=== PATIENT | male | born 1935 | race Caucasian/White ===

== ENCOUNTER 2019-01-11 09:59 | Emergency (ER) | payer OTHER ==
--- NOTE | 2019-01-11 10:36 | ER ---
Nurse's Notes [facility] Name: Eloy Dunn Jr Age: 83 yrs Sex: Male : 1935 Arrival Date: 01/11/2019 Time: 10:03 Bed 12 Private MD: Aaron Mcdaniels R Diagnosis: Cellulitis of right upper limb Presentation: 01/11 10:14 Presenting complaint: Patient states: He got a bug bite 2 days ago and it has been aj1 getting bigger and swelling since then. Transition of care: patient was not received from another setting of care. Onset of symptoms was January 09, 2019. Risk Assessment: Do you want to hurt yourself or someone else? Patient reports no desire to harm self or others. Initial Sepsis Screen: Does the patient meet any 2 criteria? No. Patient's initial sepsis screen is negative. Does the patient have a suspected source of infection? No. Patient's initial sepsis screen is negative. Care prior to arrival: None. 10:14 Method Of Arrival: Ambulatory aj1 10:14 Acuity: GIA 4 aj1 Historical: - Allergies: 10:17 ACETAMINOPHEN; aj1 10:17 Codeine; aj1 10:17 Omeprazole; aj1 - Home Meds: 10:17 amlodipine 5 mg tab 1 tab once daily [Active]; lovastatin 40 mg Oral tab 1 tab once aj1 daily [Active]; pantoprazole 40 mg oral TbEC 1 tab once daily [Active]; paroxetine HCl 10 mg oral tab 1 tab once daily [Active]; aspirin 81 mg Oral chew 1 tab once daily [Active]; multivitamin oral oral daily [Active]; simethicone 125 mg Oral chew daily [Active]; - PMHx: 10:17 Hyperlipidemia; Hypertension; Ulcers; aj1 - Immunization history:: Flu vaccine is up to date. - Social history:: Smoking status: Patient/guardian denies using tobacco. - Ebola Screening: : Patient denies travel to an Ebola-affected area in the 21 days before illness onset. Screenin:53 Abuse screen: Denies threats or abuse. Denies injuries from another. Nutritional aj1 screening: No deficits noted. Tuberculosis screening: No symptoms or risk factors identified. Fall Risk None identified. Assessment: 10:52 General: Appears in no apparent distress. comfortable, Behavior is calm, cooperative, aj1 appropriate for age. Neuro: Level of Consciousness is awake, alert, obeys commands, Oriented to person, place, time, situation. Cardiovascular: Patient's skin is warm and dry. Respiratory: Airway is patent Respiratory effort is even, unlabored, Respiratory pattern is regular, symmetrical. GI: No signs and/or symptoms were reported involving the gastrointestinal system. : No signs and/or symptoms were reported regarding the genitourinary system. EENT: No signs and/or symptoms were reported regarding the EENT system. Derm: Skin is intact, Skin is redness to right forearm Reports itching. Musculoskeletal: No signs and/or symptoms reported regarding the musculoskeletal system. Circulation, motion, and sensation intact. 10:53 Pain: Denies pain. aj1 10:53 Reassessment: Skin marker used to draw around circumference of redness, patient was aj1 instructed to return to the ER if redness continues to grow. Vital Signs: 10:17 BP 144 / 84; Pulse 77; Resp 18; Temp 98.2; Pulse Ox 97% on R/A; aj1 ED Course: 10:03 Patient arrived in ED. mr 10:04 Aaron Mcdaniels MD is Private Physician. mr 10:15 Triage completed. aj1 10:17 Arm band placed on Patient placed in an exam room. aj1 10:22 Pamela Langley [facility]NP-C [facility]. kb 10:22 Obed Denis MD is Attending Physician. kb 10:34 Carlota Downey RN is Primary Nurse. aj1 10:53 Patient has correct armband on for positive identification. aj1 10:53 No provider procedures requiring assistance completed. Patient did not have IV access aj1 during this emergency room visit. Administered Medications: 10:51 Drug: Pepcid 20 mg Route: PO; aj1 10:51 Drug: Benadryl 25 mg Route: PO; aj1 10:51 Drug: Bactrim (160 mg-800 mg (DS) 1 tablet Route: PO; aj1 Outcome: 10:36 Discharge ordered by . kb 10:54 Discharged to home ambulatory. aj1 10:54 Condition: good 10:54 Discharge instructions given to patient, Instructed on discharge instructions, follow up and referral plans. medication usage, Demonstrated understanding of instructions, follow-up care, medications, Prescriptions given X 2. 10:54 Patient left the ED. aj1 Signatures: Pamela Langley, CRISTINA VAZQUEZ-Carlota Szymanski RN RN aj1 [place] mr
--- NOTE | 2019-01-11 10:37 | EDPHYS ---
Physician Documentation [facility] Name: Eloy Dunn Jr Age: 83 yrs Sex: Male : 1935 Arrival Date: 01/11/2019 Time: 10:03 Bed 12 Private MD: Aaron Mcdaniels R ED Physician Obed Denis HPI: 01/11 10:33 This 83 yrs old Male presents to ER via Ambulatory with complaints of Insect kb Bite, arm swelling. 10:33 The patient presents with cellulitis of the right forearm. Description: erythematous, kb swollen, warm. Onset: The symptoms/episode began/occurred 2 day(s) ago, and became worse last night. Possible cause(s): insect sting. Associated signs and symptoms: Pertinent positives: erythema, swelling, Pertinent negatives: discharge, drainage, foreign body sensation, fever, headache, nausea, shortness of breath, vomiting. Modifying factors: the symptoms are alleviated by nothing, the symptoms are aggravated by nothing. Severity of symptoms: At their worst the symptoms were moderate, in the emergency department the symptoms are unchanged. The patient has not experienced similar symptoms in the past. The patient has not recently seen a physician. Pt reports he was stung or bit by a bug on evening. Started getting red and swollen yesterday and worse last night. . Historical: - Allergies: 10:17 ACETAMINOPHEN; aj1 10:17 Codeine; aj1 10:17 Omeprazole; aj1 - Home Meds: 10:17 amlodipine 5 mg tab 1 tab once daily [Active]; lovastatin 40 mg Oral tab 1 tab once aj1 daily [Active]; pantoprazole 40 mg oral TbEC 1 tab once daily [Active]; paroxetine HCl 10 mg oral tab 1 tab once daily [Active]; aspirin 81 mg Oral chew 1 tab once daily [Active]; multivitamin oral oral daily [Active]; simethicone 125 mg Oral chew daily [Active]; - PMHx: 10:17 Hyperlipidemia; Hypertension; Ulcers; aj1 - Immunization history:: Flu vaccine is up to date. - Social history:: Smoking status: Patient/guardian denies using tobacco. - Ebola Screening: : Patient denies travel to an Ebola-affected area in the 21 days before illness onset. ROS: 10:30 Constitutional: Negative for fever, chills, and weight loss, Cardiovascular: Negative kb for chest pain, palpitations, and edema, Respiratory: Negative for shortness of breath, cough, wheezing, and pleuritic chest pain, Abdomen/GI: Negative for abdominal pain, nausea, vomiting, diarrhea, and constipation, MS/Extremity: Negative for injury and deformity, Neuro: Negative for headache, weakness, numbness, tingling, and seizure. 10:30 Skin: Positive for erythema, swelling, of the right forearm. Exam: 10:30 Constitutional: This is a well developed, well nourished patient who is awake, alert, kb and in no acute distress. Head/Face: Normocephalic, atraumatic. Chest/axilla: Normal chest wall appearance and motion. Nontender with no deformity. No lesions are appreciated. Cardiovascular: Regular rate and rhythm with a normal S1 and S2. No gallops, murmurs, or rubs. Normal PMI, no JVD. No pulse deficits. Respiratory: Lungs have equal breath sounds bilaterally, clear to auscultation and percussion. No rales, rhonchi or wheezes noted. No increased work of breathing, no retractions or nasal flaring. Abdomen/GI: Soft, non-tender, with normal bowel sounds. No distension or tympany. No guarding or rebound. No evidence of tenderness throughout. MS/ Extremity: Pulses equal, no cyanosis. Neurovascular intact. Full, normal range of motion. Neuro: Awake and alert, GCS 15, oriented to person, place, time, and situation. Cranial nerves II-XII grossly intact. Motor strength 5/5 in all extremities. Sensory grossly intact. Cerebellar exam normal. Normal gait. 10:30 Skin: cellulitis, that is mild, on the right forearm. Vital Signs: 10:17 BP 144 / 84; Pulse 77; Resp 18; Temp 98.2; Pulse Ox 97% on R/A; aj1 MDM: 10:22 Patient medically screened. kb 10:29 Data reviewed: vital signs, nurses notes. Data interpreted: Pulse oximetry: on room air kb is 97 %. Interpretation: normal. Counseling: I had a detailed discussion with the patient and/or guardian regarding: the historical points, exam findings, and any diagnostic results supporting the discharge/admit diagnosis, the need for outpatient follow up, a family practitioner, to return to the emergency department if symptoms worsen or persist or if there are any questions or concerns that arise at home. 10:34 ED course: No areas of fluctuance noted. Pt reports itching to area.. kb Administered Medications: 10:51 Drug: Pepcid 20 mg Route: PO; aj1 10:51 Drug: Benadryl 25 mg Route: PO; aj1 10:51 Drug: Bactrim (160 mg-800 mg (DS) 1 tablet Route: PO; aj1 Disposition: 17:55 Co-signature as Attending Physician, Obed Denis MD. Disposition: 01/11/19 10:36 Discharged to Home. Impression: Cellulitis of right upper limb. - Condition is Stable. - Discharge Instructions: Cellulitis, Adult, [id number]. - Prescriptions for Pepcid 20 mg Oral Tablet - take 1 tablet by ORAL route every 12 hours for 5 days; 10 tablet. Bactrim DS 800- 160 mg Oral Tablet - take 1 tablet by ORAL route every 12 hours for 10 days; 20 tablet. - Medication Reconciliation Form, Thank You Letter, Antibiotic Education, Prescription Opioid Use form. - Follow up: Emergency Department; When: As needed; Reason: Worsening of condition. Follow up: Private Physician; When: 2 - 3 days; Reason: Recheck today's complaints, Continuance of care, Re-evaluation by your physician. Signatures: Pamela Langley, ELECTRONIC ENGRAVER-C ELECTRONIC ENGRAVER-Carlota Szymanski RN RN aj1 Obed Denis MD MD Corrections: (The following items were deleted from the chart) 10:54 10:36 01/11/2019 10:36 Discharged to Home. Impression: Cellulitis of right upper limb. aj1 Condition is Stable. Forms are Medication Reconciliation Form, Thank You Letter, Antibiotic Education, Prescription Opioid Use. Follow up: Emergency Department; When: As needed; Reason: Worsening of condition. Follow up: Private Physician; When: 2 - 3 days; Reason: Recheck today's complaints, Continuance of care, Re-evaluation by your physician. kb
[2019-01-11] MEDS ORDERED: DIPHENHYDRAMINE 25 MG TAB/CAP ONE (10:51)
[2019-01-11] MEDS ORDERED: FAMOTIDINE 20 MG TAB ONE (10:52)
[2019-01-11] MEDS ORDERED: SMZ./TMP. 800/160 MG TABLET ONE (10:52)
[2019-01-11 11:01] VITALS: BP 144/84; TEMP 98.2; O2SAT 97
== END 2019-01-11 10:54 | disposition home or self-care (01) ==
LOC: ER 09:59
DX: L03.113 Cellulitis of right upper limb (principal); I10 Essential (primary) hypertension; E78.5 Hyperlipidemia, unspecified; Z79.82 Long term (current) use of aspirin; Z88.5 Allergy status to narcotic agent; Z88.6 Allergy status to analgesic agent; Z88.8 Allergy status to other drugs, medicaments and biological substances
CPT/HCPCS: 99283

== ENCOUNTER 2019-01-11 20:15 | Emergency (ER) | payer OTHER ==
[2019-01-11] MEDS ORDERED: CLINDAMYCIN 600MG/D5W 600 MG/50 ML BAG IV ONE (20:50)
[2019-01-11] MEDS ORDERED: hydrOXYzine HCl 25 MG TAB ONE (20:50)
--- NOTE | 2019-01-11 21:03 | ER ---
Nurse's Notes [facility] [place], [place] Name: Eloy Dunn Jr Age: 83 yrs Sex: Male : 1935 Arrival Date: 01/11/2019 Time: 20:18 Bed 13 Private MD: Aaron Mcdaniels R Diagnosis: Cellulitis of right upper limb Presentation: 01/11 20:23 Presenting complaint: Patient states: States he was seen earlier in ER for insect bite wh on R forearm, was given Bactrim and Pepcid. Was told to come back in ER if redness progresses beyond the drawn line. Pt states R arm is more red, warm and more itchy. Transition of care: patient was not received from another setting of care. Onset of symptoms was January 11, 2019. Risk Assessment: Do you want to hurt yourself or someone else? Patient reports no desire to harm self or others. Initial Sepsis Screen: Does the patient meet any 2 criteria? No. Patient's initial sepsis screen is negative. Does the patient have a suspected source of infection? Yes:. Care prior to arrival: None. 20:23 Method Of Arrival: Ambulatory 20:23 Acuity: GIA 3 Triage Assessment: 20:27 General: Appears in no apparent distress. Behavior is calm, cooperative, appropriate wh for age. Historical: - Allergies: 20:23 ACETAMINOPHEN; ch 20:23 Codeine; ch 20:23 Omeprazole; ch - Home Meds: 20:23 amlodipine 5 mg tab 1 tab once daily [Active]; aspirin 81 mg Oral chew 1 tab once daily ch [Active]; lovastatin 40 mg Oral tab 1 tab once daily [Active]; multivitamin Oral daily [Active]; pantoprazole 40 mg Oral TbEC 1 tab once daily [Active]; paroxetine HCl 10 mg Oral tab 1 tab once daily [Active]; simethicone 125 mg Oral chew daily [Active]; - PMHx: 20:23 Hyperlipidemia; Hypertension; Ulcers; ch - PSHx: 20:26 shoulder "infection" removed; eriberto hands tendon release; ch - Immunization history:: Adult Immunizations up to date. - Social history:: Smoking status: Patient/guardian denies using tobacco. - Ebola Screening: : Patient negative for fever greater than or equal to 101.5 degrees Fahrenheit, and additional compatible Ebola Virus Disease symptoms Patient denies exposure to infectious person Patient denies travel to an Ebola-affected area in the 21 days before illness onset No symptoms or risks identified at this time. Screenin:25 Abuse screen: Denies threats or abuse. Denies injuries from another. Nutritional wh screening: No deficits noted. Tuberculosis screening: No symptoms or risk factors identified. Fall Risk None identified. Assessment: 20:27 General: Appears in no apparent distress. Behavior is calm, cooperative, appropriate wh for age. Pain: Denies pain. Neuro: Level of Consciousness is awake, alert, obeys commands. Cardiovascular: Capillary refill < 3 seconds. Respiratory: Airway is patent Respiratory effort is even, unlabored, Respiratory pattern is regular, symmetrical. GI: Abdomen is flat, non-distended. : No signs and/or symptoms were reported regarding the genitourinary system. EENT: No signs and/or symptoms were reported regarding the EENT system. Derm: Skin is red, Skin temperature is warm on R Forearm. Musculoskeletal: Range of motion: intact in all extremities. 21:04 Reassessment: awaiting pt clindamycin to finish prior to discharge. 21:23 Reassessment: Patient and/or family updated on plan of care and expected duration. Pain bb level reassessed. Patient is alert, oriented x 3, equal unlabored respirations, skin warm/dry/pink. pt and spouse verbalized understanding of and agrees to plan of care discharge instructions given pt ambulated with steady gait to exit accompanied by spouse. Vital Signs: 20:25 BP 153 / 91; Pulse 79; Resp 18; Temp 99.1; Pulse Ox 96% on R/A; wh 21:24 BP 133 / 83; Pulse 73; Resp 16 S; Temp 98.6(O); Pulse Ox 95% on R/A; bb ED Course: 20:18 Patient arrived in ED. am2 20:19 Aaron Mcdaniels MD is Private Physician. am2 20:22 Clarisse Rea is Primary Nurse. 20:25 Triage completed. 20:27 Arm band placed on left wrist. 20:27 Patient has correct armband on for positive identification. Bed in low position. Call light in reach. Side rails up X 1. Pulse ox on. NIBP on. 20:28 Pamela [facility]-C [facility]. kb 20:28 Leonardo Lockhart MD is Attending Physician. kb 20:48 Inserted saline lock: 22 gauge in left antecubital area, using aseptic technique. 21:02 Aaron Mcdaniels MD is Referral Physician. kb 21:24 No provider procedures requiring assistance completed. IV discontinued, intact, bb bleeding controlled, No redness/swelling at site. Pressure dressing applied. Administered Medications: 20:46 Drug: Atarax 50 mg Route: PO; 20:47 Drug: Clindamycin 600 mg Route: IVPB; Infused Over: 30 mins; Site: left antecubital; Outcome: 21:02 Discharge ordered by MD. kb 21:24 Discharged to home ambulatory, with family. bb 21:24 Condition: stable 21:24 Discharge instructions given to patient, family, Instructed on discharge instructions, follow up and referral plans. medication usage, Demonstrated understanding of instructions, follow-up care, medications, Prescriptions given X 2. 21:25 Patient left the ED. bb Signatures: Pamela Langley FNP-C FNP-Katherin Herrera, RN RN Joan Washington RN RN Kaleigh Zendejas Winsy
--- NOTE | 2019-01-11 21:04 | EDPHYS ---
Physician Documentation [facility] Name: Eloy Dunn Jr Age: 83 yrs Sex: Male : 1935 Arrival Date: 01/11/2019 Time: 20:18 Bed 13 Private MD: Aaron Mcdaniels R ED Physician Leonardo Lockhart HPI: 01/11 20:36 This 83 yrs old Male presents to ER via Ambulatory with complaints of Arm kb Problem - swelling. 20:36 The patient presents with cellulitis of the right forearm. Description: erythematous, kb swollen, warm. Onset: The symptoms/episode began/occurred 2 day(s) ago. Possible cause(s): insect sting. Associated signs and symptoms: Pertinent positives: erythema, swelling, Pertinent negatives: discharge, drainage, foreign body sensation, fever, headache, nausea, shortness of breath, vomiting. Modifying factors: the symptoms are alleviated by nothing, the symptoms are aggravated by nothing. Severity of symptoms: At their worst the symptoms were moderate, in the emergency department the symptoms are unchanged. The patient has not experienced similar symptoms in the past. The patient has been recently seen at the [facility] Emergency Department, today, by me, for similar complaints was given a prescription for antibiotics. Pt came back to ER because redness spread outside of lines drawn at his earlier visit. States the itching is more intense as well and it what is bothering him the most. Pt had first dose of bactrim here at 1030 and is scheduled to have his second dose tonight. . Historical: - Allergies: 20:23 ACETAMINOPHEN; ch 20:23 Codeine; ch 20:23 Omeprazole; ch - Home Meds: 20:23 amlodipine 5 mg tab 1 tab once daily [Active]; aspirin 81 mg Oral chew 1 tab once daily ch [Active]; lovastatin 40 mg Oral tab 1 tab once daily [Active]; multivitamin Oral daily [Active]; pantoprazole 40 mg Oral TbEC 1 tab once daily [Active]; paroxetine HCl 10 mg Oral tab 1 tab once daily [Active]; simethicone 125 mg Oral chew daily [Active]; - PMHx: 20:23 Hyperlipidemia; Hypertension; Ulcers; ch - PSHx: 20:26 shoulder "infection" removed; eriberto hands tendon release; ch - Immunization history:: Adult Immunizations up to date. - Social history:: Smoking status: Patient/guardian denies using tobacco. - Ebola Screening: : Patient negative for fever greater than or equal to 101.5 degrees Fahrenheit, and additional compatible Ebola Virus Disease symptoms Patient denies exposure to infectious person Patient denies travel to an Ebola-affected area in the 21 days before illness onset No symptoms or risks identified at this time. ROS: 20:35 Constitutional: Negative for fever, chills, and weight loss, Cardiovascular: Negative kb for chest pain, palpitations, and edema, Respiratory: Negative for shortness of breath, cough, wheezing, and pleuritic chest pain, Abdomen/GI: Negative for abdominal pain, nausea, vomiting, diarrhea, and constipation, MS/Extremity: Negative for injury and deformity, Neuro: Negative for headache, weakness, numbness, tingling, and seizure. 20:35 Skin: Positive for cellulitis, erythema, swelling, of the right forearm. Exam: 20:35 Constitutional: This is a well developed, well nourished patient who is awake, alert, kb and in no acute distress. Head/Face: Normocephalic, atraumatic. Neck: Trachea midline, no thyromegaly or masses palpated, and no cervical lymphadenopathy. Supple, full range of motion without nuchal rigidity, or vertebral point tenderness. No Meningismus. Chest/axilla: Normal chest wall appearance and motion. Nontender with no deformity. No lesions are appreciated. Cardiovascular: Regular rate and rhythm with a normal S1 and S2. No gallops, murmurs, or rubs. Normal PMI, no JVD. No pulse deficits. Respiratory: Lungs have equal breath sounds bilaterally, clear to auscultation and percussion. No rales, rhonchi or wheezes noted. No increased work of breathing, no retractions or nasal flaring. Abdomen/GI: Soft, non-tender, with normal bowel sounds. No distension or tympany. No guarding or rebound. No evidence of tenderness throughout. MS/ Extremity: Pulses equal, no cyanosis. Neurovascular intact. Full, normal range of motion. Neuro: Awake and alert, GCS 15, oriented to person, place, time, and situation. Cranial nerves II-XII grossly intact. Motor strength 5/5 in all extremities. Sensory grossly intact. Cerebellar exam normal. Normal gait. 20:35 Skin: Wound recheck: Cellulitis: the condition appears to have progressed, increased erythema, increased swelling, swelling is more fluid filled than when I evaluated pt earlier today. Warmth and indurated area still the same.. Vital Signs: 20:25 BP 153 / 91; Pulse 79; Resp 18; Temp 99.1; Pulse Ox 96% on R/A; wh 21:24 BP 133 / 83; Pulse 73; Resp 16 S; Temp 98.6(O); Pulse Ox 95% on R/A; bb MDM: 20:28 Patient medically screened. kb 20:34 Data reviewed: vital signs, nurses notes. Data interpreted: Pulse oximetry: on room air kb is 96 %. Interpretation: normal. Counseling: I had a detailed discussion with the patient and/or guardian regarding: the historical points, exam findings, and any diagnostic results supporting the discharge/admit diagnosis, the need for outpatient follow up, a family practitioner, to return to the emergency department if symptoms worsen or persist or if there are any questions or concerns that arise at home. ED course: Dr Lockhart evaluated pt as well. Recommends adding an IV dose of clindamycin and sending pt home with oral clindamycin. Continue bactrim previously prescribed as well. . 01/11 20:33 Order name: IV Start; Complete Time: 20:46 kb Administered Medications: 20:46 Drug: Atarax 50 mg Route: PO; 20:47 Drug: Clindamycin 600 mg Route: IVPB; Infused Over: 30 mins; Site: left antecubital; Disposition: 01/12 06:38 Co-signature as Attending Physician, Leonardo Lockhart MD I agree with the assessment and 4 plan of care. Disposition: 01/11/19 21:02 Discharged to Home. Impression: Cellulitis of right upper limb. - Condition is Stable. - Discharge Instructions: Cellulitis, Adult, [id number]. - Prescriptions for Clindamycin HCl 300 mg Oral Capsule - take 1 capsule by ORAL route every 6 hours for 10 days; 40 capsule. Hydroxyzine HCl 50 mg Oral Tablet - take 1 tablet by ORAL route every 8 hours As needed; 20 tablet. - Medication Reconciliation Form, Thank You Letter, Antibiotic Education, Prescription Opioid Use form. - Follow up: Emergency Department; When: As needed; Reason: Worsening of condition. Follow up: Aaron Mcdaniels MD; When: 2 - 3 days; Reason: Recheck today's complaints, Continuance of care, Re-evaluation by your physician. Signatures: Pamela Langley, MICA PLATE LAYER-C MICA PLATE LAYER-CkKatherin Wilson, RN RN ch Joan Washington RN RN bb Clarisse Rea Terrence, MD MD tw4 Corrections: (The following items were deleted from the chart) 01/11 21:25 21:02 01/11/2019 21:02 Discharged to Home. Impression: Cellulitis of right upper limb. bb Condition is Stable. Forms are Medication Reconciliation Form, Thank You Letter, Antibiotic Education, Prescription Opioid Use. Follow up: Emergency Department; When: As needed; Reason: Worsening of condition. Follow up: Aaron Mcadniels; When: 2 - 3 days; Reason: Recheck today's complaints, Continuance of care, Re-evaluation by your physician. kb
[2019-01-11 22:42] VITALS: BP 133/83; TEMP 98.6; O2SAT 95
== END 2019-01-11 21:25 | disposition home or self-care (01) ==
LOC: ER 20:15
DX: L03.113 Cellulitis of right upper limb (principal); I10 Essential (primary) hypertension; E78.5 Hyperlipidemia, unspecified; Z79.82 Long term (current) use of aspirin; Z88.5 Allergy status to narcotic agent; Z88.6 Allergy status to analgesic agent; Z88.8 Allergy status to other drugs, medicaments and biological substances
CPT/HCPCS: 96374; 99284

== ENCOUNTER 2021-06-29 13:16 | Emergency (ER) | payer OTHER ==
--- OUTSIDE RECORDS SUMMARY | 2021-06-29 13:18 | XMS REPORT | Continuity of Care Document ---
:1935 Author Organization [facility] t Address [address] [place] [address] Dr. Bernardo [address] [place] [id number] Care Team Providers Name Role Phone Sanjay-Carmeno_A_AH Attending Clinician Unavailable Sanjay-Carmeno_A_AH Admitting Clinician Unavailable Payers Payer Name Policy Type Policy Number Effective Date Expiration Date S lala [facility] [place] - [id number] [id number] [employer] 00:00:00 (MEDICARE REPLACEMENT/ADVANT AGE - HMO) Problems This patient has no known problems. Allergies, Adverse Reactions, Alerts This patient has no known allergies or adverse reactions. Medications This patient has no known medications. Procedures This patient has no known procedures. Encounters Start End Encounter Admission Attending Care Care Encounter Source Date/Time Date/Time Type Type Clinicians Facility Department ID 2019-08-13 2019-08-13 Outpatient [facility] [phone] [facility] 07:19:00 07:19:00 _A_AH [id number] Family Practic e Results This patient has no known results.
--- NOTE | 2021-06-29 14:45 | RAD REPORT ---
EXAM DESCRIPTION: Jesus Garcia (2 Views)06/29/2021 2:10 pm CLINICAL HISTORY: Cough COMPARISON: 2016 FINDINGS: The lungs appear clear of acute infiltrate. The heart is mildly enlarged IMPRESSION: No acute abnormalities displayed
[2021-06-29 15:20] LABS: SARS-COV-2 RT PCR NEGATIVE (NEGATIVE)
--- NOTE | 2021-06-29 15:34 | EDPHYS ---
Physician Documentation [facility] Name: Eloy Dunn Jr Age: 85 yrs Sex: Male : 1935 Arrival Date: 06/29/2021 Time: 13:18 Bed 11 Private MD: ED Physician Margarito Shepherd HPI: 06/29 13:43 This 85 yrs old Male presents to ER via Ambulatory with complaints of Cough, Headache, pm1 Sent Per Dr Adriana PETERS. 13:43 The patient or guardian reports cough, with no sputum. Onset: The symptoms/episode pm1 began/occurred 2 week(s) ago. Severity of symptoms: in the emergency department the symptoms have improved. Modifying factors: The symptoms are alleviated by OTC cold preparation, the symptoms are aggravated by nothing. Associated signs and symptoms: Pertinent negatives: chest pain, fever, sore throat, shortness of breath. The patient has been recently seen by a physician: the patient's primary care provider, Dr. Mcdaniels with similar presenting complaints, Told to go to the ER for a chest x-ray to rule out pneumonia. Historical: - Allergies: 13:32 ACETAMINOPHEN; ld1 13:32 Codeine; ld1 13:32 Omeprazole; ld1 - PMHx: 13:32 Hyperlipidemia; Hypertension; Ulcers; ld1 - PSHx: 13:32 None; ld1 - Immunization history:: Adult Immunizations up to date, Client reports receiving the 2nd dose of the Covid vaccine, Moderna. - Social history:: Smoking status: Patient denies any tobacco usage or history of. Patient/guardian denies using alcohol. ROS: 13:43 Constitutional: Negative for fever, chills, and weight loss, Cardiovascular: Negative pm1 for chest pain, palpitations, and edema. 13:43 Abdomen/GI: Negative for abdominal pain, nausea, vomiting, diarrhea, and constipation, Back: Negative for injury and pain, MS/Extremity: Negative for injury and deformity, Skin: Negative for injury, rash, and discoloration, Neuro: Negative for headache, weakness, numbness, tingling, and seizure. 13:43 Respiratory: Positive for cough, Negative for shortness of breath, sputum production. 13:43 All other systems are negative. Exam: 13:43 Constitutional: This is a well developed, well nourished patient who is awake, alert, pm1 and in no acute distress. Head/Face: Normocephalic, atraumatic. 13:43 Cardiovascular: Regular rate and rhythm with a normal S1 and S2. No gallops, murmurs, or rubs. Normal PMI, no JVD. No pulse deficits. 13:43 Abdomen/GI: Soft, non-tender, with normal bowel sounds. No distension or tympany. No guarding or rebound. No evidence of tenderness throughout. Back: No spinal tenderness. No costovertebral tenderness. Full range of motion. Skin: Warm, dry with normal turgor. Normal color with no rashes, no lesions, and no evidence of cellulitis. MS/ Extremity: Pulses equal, no cyanosis. Neurovascular intact. Full, normal range of motion. 13:43 ENT: Exam is negative for acute changes, Mouth: no acute changes, Lips: normal, moist, Oral mucosa: normal, pink and intact, moist, Posterior pharynx: no acute changes, Airway: normal, no evidence of obstruction, Tonsils: are normal in appearance, peritonsillar mass, is not appreciated. 13:43 Respiratory: Exam negative for acute changes, respiratory distress, shortness of breath, Breath sounds: are clear throughout. 13:43 Neuro: Exam negative for acute changes, Orientation: is normal, Mentation: is normal, Motor: is normal, moves all fours. Vital Signs: 13:29 BP 144 / 75; Pulse 78; Resp 18; Temp 98.1(O); Pulse Ox 98% on R/A; Weight 88 kg; Height ld1 5 ft. 9 in. (175.26 cm); Pain 0/10; 13:29 Body Mass Index 28.65 (88.00 kg, 175.26 cm) ld1 MDM: 13:34 Patient medically screened. pm1 15:32 Data reviewed: vital signs. Data interpreted: Pulse oximetry: on room air is 98 %. pm1 Interpretation: normal. Counseling: I had a detailed discussion with the patient and/or guardian regarding: the historical points, exam findings, and any diagnostic results supporting the discharge/admit diagnosis, lab results, radiology results, the need for outpatient follow up, a family practitioner, to return to the emergency department if symptoms worsen or persist or if there are any questions or concerns that arise at home. 15:44 ED course: patient offered cough medication but he reports cough has improved over the pm1 course of his illness. he refused a prescription. He and his were primarily interested in getting a chest x-ray to rule out pneumonia. Patient was sent to the ER by Dr. Mcdaniels for a chest x-ray. 06/29 13:42 Order name: COVID-19/FLU A+B (Document "Date of Onset" if Symptomatic); Complete Time: pm1 15:26 06/29 13:42 Order name: Strep; Complete Time: 15:16 pm1 06/29 13:42 Order name: Chest Pa And Lat (2 Views) XRAY; Complete Time: 15:08 pm1 06/29 15:12 Order name: Throat Culture EDMS Administered Medications: No medications were administered Disposition: 18:03 Co-signature as Attending Physician, Margarito Shepherd MD. rn Disposition Summary: 06/29/21 15:33 Discharge Ordered Location: Home pm1 Problem: new pm1 Symptoms: have improved pm1 Condition: Stable pm1 Diagnosis - Acute upper respiratory infection, unspecified pm1 Followup: pm1 - With: Emergency Department - When: As needed - Reason: Worsening of condition Followup: pm1 - With: Private Physician - When: 2 - 3 days - Reason: Recheck today's complaints, Continuance of care, Re-evaluation by your physician Discharge Instructions: - Discharge Summary Sheet pm1 - Upper Respiratory Infection, Adult pm1 Forms: - Medication Reconciliation Form pm1 - Thank You Letter pm1 - Antibiotic Education pm1 - Prescription Opioid Use pm1 Signatures: Dispatcher [employer] EDMS Margarito Shepherd MD MD rn Marinas, Patrick, NP [employer] pm1 Dilia Hawkins, OLEKSANDR RN ld1
--- NOTE | 2021-06-29 15:34 | ER ---
Nurse's Notes [facility] Name: Eloy Dunn Jr Age: 85 yrs Sex: Male : 1935 Arrival Date: 06/29/2021 Time: 13:18 Bed 11 Private MD: Diagnosis: Acute upper respiratory infection, unspecified Presentation: 06/29 13:29 Chief complaint: Patient states: Dr. Teresa sent me to the ER, she thinks I may have ld1 walking pneumonia. I have been sick for about two weeks, I have been coughing, runny nose, sneezing, congestion. I have been vaccinated with all three shots, I tested negative for covid on Sunday here at the hospital. Coronavirus screen: Client presents with at least one sign or symptom that may indicate coronavirus-19. Standard/surgical mask placed on the client. Ebola Screen: No symptoms or risks identified at this time. Initial Sepsis Screen: Does the patient meet any 2 criteria? No. Patient's initial sepsis screen is negative. Does the patient have a suspected source of infection? No. Patient's initial sepsis screen is negative. Risk Assessment: Do you want to hurt yourself or someone else? Patient reports no desire to harm self or others. Onset of symptoms was June 29, 2021. 13:29 Method Of Arrival: Ambulatory ld1 13:29 Acuity: GIA 3 ld1 Triage Assessment: 13:32 Headache History: Denies prior headaches. General: Appears in no apparent distress. ld1 comfortable, Behavior is calm, cooperative, appropriate for age. Pain: Denies pain. Neuro: Level of Consciousness is awake, alert, obeys commands, Oriented to person, place, time, situation. Respiratory: Airway is patent Respiratory effort is even, unlabored. 15:49 Pain: Pain level that patient reports is acceptable is 0 out of 10 on a pain scale. rust Pain began gradually, Also complains of shortness of breath. Historical: - Allergies: 13:32 ACETAMINOPHEN; ld1 13:32 Codeine; ld1 13:32 Omeprazole; ld1 - PMHx: 13:32 Hyperlipidemia; Hypertension; Ulcers; ld1 - PSHx: 13:32 None; ld1 - Immunization history:: Adult Immunizations up to date, Client reports receiving the 2nd dose of the Covid vaccine, Moderna. - Social history:: Smoking status: Patient denies any tobacco usage or history of. Patient/guardian denies using alcohol. Screenin:48 Abuse screen: Denies threats or abuse. Denies injuries from another. Nutritional rust screening: No deficits noted. Tuberculosis screening: No symptoms or risk factors identified. Fall Risk None identified. Vital Signs: 13:29 BP 144 / 75; Pulse 78; Resp 18; Temp 98.1(O); Pulse Ox 98% on R/A; Weight 88 kg; Height ld1 5 ft. 9 in. (175.26 cm); Pain 0/10; 13:29 Body Mass Index 28.65 (88.00 kg, 175.26 cm) ld1 ED Course: 13:18 Patient arrived in ED. ds1 13:32 Triage completed. ld1 13:32 Arm band placed on right wrist. ld1 13:34 Alberto Ramos NP is PHCP. pm1 13:34 Margarito Shepherd MD is Attending Physician. pm1 14:07 COVID-19/FLU A+B (Document "Date of Onset" if Symptomatic) Sent. rust 14:09 Chest Pa And Lat (2 Views) XRAY In Process Unspecified. EDMS 14:23 Strep Sent. rust 15:48 Patient has correct armband on for positive identification. rust 15:48 No provider procedures requiring assistance completed. rust 15:49 Patient did not have IV access during this emergency room visit. rust Administered Medications: No medications were administered Outcome: 15:33 Discharge ordered by MD. pm1 15:49 Discharged to home rust 15:49 Condition: good 15:49 Discharge instructions given to patient. 15:49 Patient left the ED. rust Signatures: Dispatcher [employer] EDIA HumphriesMildred ackerman ds1 Alberto Ramos NP SURGICAL SCRUB TECHNICIAN pm1 Dilia Hawkins RN RN ld1 Sydnie Porter RN RN ha
[2021-06-29 15:54] VITALS: BP 144/75; TEMP 98.1; O2SAT 98
== END 2021-06-29 15:49 | disposition home or self-care (01) ==
LOC: ER 13:16
DX: J06.9 Acute upper respiratory infection, unspecified (principal); Z20.822 Contact with and (suspected) exposure to COVID-19; I10 Essential (primary) hypertension; Z88.5 Allergy status to narcotic agent; Z88.6 Allergy status to analgesic agent; Z88.8 Allergy status to other drugs, medicaments and biological substances
CPT/HCPCS: 87070; 87081; 0240U; 71046; 99283

== ENCOUNTER 2023-02-27 08:55 | Emergency (ER) | payer OTHER ==
--- OUTSIDE RECORDS SUMMARY | 2023-02-27 08:58 | XMS REPORT | Continuity of Care Document ---
:1935 Author Organization [facility] t Address [address] [place] [address] [place] [id number] Care Team Providers Name Role Phone Saleem_A_AH Attending Clinician Unavailable Solomon Admitting Clinician Unavailable Payers Payer Name Policy Type Policy Number Effective Date Expiration Date [facility] [place] [facility] [id number] 1897-01-[facility] (MEDICARE REPLACEMENT/ADVANT AGE - HMO) Problems This patient has no known problems. Allergies, Adverse Reactions, Alerts This patient has no known allergies or adverse reactions. Medications This patient has no known medications. Procedures This patient has no known procedures. Encounters Start End Encounter Admission Attending Care Care Encounter Source Date/Time Date/Time Type Type Clinicians Facility Department ID 2019-08-13 2019-08-13 Outpatient Saleem VFP VFP [phone] [facility] 07:19:00 07:19:00 _A_AH [id number] Family Practic e Results This patient has no known results.
--- NOTE | 2023-02-27 09:23 | ER ---
Nurse's Notes [facility] Name: Eloy Dunn Jr Age: 87 yrs Sex: Male : 1935 Arrival Date: 02/27/2023 Time: 08:55 Bed IW3 Private MD: Diagnosis: Allergic contact dermatitis due to plants, except food Presentation: 02/27 09:12 Chief complaint: Itchy rash on arms, face, and back after poison ernestina exposure one week hb ago. Coronavirus screen: At this time, the client does not indicate any symptoms associated with coronavirus-19. Ebola Screen: No symptoms or risks identified at this time. Initial Sepsis Screen: Does the patient meet any 2 criteria? No. Patient's initial sepsis screen is negative. Does the patient have a suspected source of infection? No. Patient's initial sepsis screen is negative. Risk Assessment: Do you want to hurt yourself or someone else? Patient reports no desire to harm self or others. Onset of symptoms was February 21, 2023. 09:12 Method Of Arrival: Ambulatory hb 09:12 Acuity: GIA 4 hb Triage Assessment: :14 General: Appears in no apparent distress. Behavior is calm, cooperative. Pain: Pain hb currently is 2 out of 10 on a pain scale. Neuro: Level of Consciousness is awake, alert, obeys commands, Oriented to person, place, time, situation. Cardiovascular: Patient's skin is warm and dry. Respiratory: Respiratory effort is even, unlabored, Respiratory pattern is regular, symmetrical. Historical: - Allergies: 09:13 ACETAMINOPHEN; hb 09:13 Codeine; hb 09:13 Omeprazole; hb - PMHx: 09:13 Hyperlipidemia; Hypertension; Ulcers; hb - Immunization history:: Adult Immunizations up to date. - Social history:: Smoking status: Patient denies any tobacco usage or history of. - Family history:: not pertinent. - Hospitalizations: : No recent hospitalization is reported. Screenin:13 [facility] ED Fall Risk Assessment (Adult) Score/Fall Risk Level 0 - 2 = Low Risk hb Oriented to surroundings, Maintained a safe environment. Abuse screen: Denies threats or abuse. Denies injuries from another. Nutritional screening: No deficits noted. Tuberculosis screening: No symptoms or risk factors identified. Assessment: 09:14 General: See triage assessment. hb Vital Signs: 09:12 BP 149 / 94; Pulse 103; Resp 18; Temp 98.3; Pulse Ox 100% on R/A; Weight 81.65 kg; hb Height 5 ft. 9 in. ; Pain 2/10; 09:12 Body Mass Index 26.58 (81.65 kg, 175.26 cm) hb 09:12 Pain Scale: Adult hb ED Course: 08:57 Patient arrived in ED. rg4 09:12 Margarito Shepherd MD is Attending Physician. rn 09:13 Triage completed. hb 09:13 Arm band placed on. hb 09:14 Patient has correct armband on for positive identification. Provided Education on: . hb 09:14 No provider procedures requiring assistance completed. Patient did not have IV access hb during this emergency room visit. 09:18 Sydnie Stanley, RN is Primary Nurse. hb Administered Medications: 09:29 Drug: Dexamethasone IM 10 mg Route: IM; Site: right deltoid; hb 09:29 Follow up: Response: No adverse reaction hb Medication: 09:14 VIS not applicable for this client. hb Outcome: :23 Discharge ordered by . rn 09:29 Patient left the ED. hb Signatures: Margarito Shepherd MD MD rn Baxter, Heather, RN RN hb Garcia, Rubi rg4
--- NOTE | 2023-02-27 09:23 | EDPHYS ---
Physician Documentation [facility] Name: Eloy Dunn Jr Age: 87 yrs Sex: Male : 1935 Arrival Date: 02/27/2023 Time: 08:55 Bed IW3 Private MD: ED Physician Margarito Shepherd HPI: 02/27 09:18 This 87 yrs old Male presents to ER via Ambulatory with complaints of Rash. rn 09:18 The patient's rash thought to be caused by Dermatitis Contact allergy. rn 09:20 The rash is located on the body diffusely. The rash can be described as erythematous. rn Onset: The symptoms/episode began/occurred 1 week(s) ago. Associated signs and symptoms: Pertinent positives: itching, Pertinent negatives: fever. Severity of symptoms: At their worst the symptoms were mild in the emergency department the symptoms are unchanged. The patient has experienced a previous episode. Patient reports rash, concern is poison maría, began 1 week ago and not improving. Trying Benadryl and lotion at home. Has had before. No fever.. Historical: - Allergies: 09:13 ACETAMINOPHEN; hb 09:13 Codeine; hb 09:13 Omeprazole; hb - PMHx: 09:13 Hyperlipidemia; Hypertension; Ulcers; hb - Immunization history:: Adult Immunizations up to date. - Social history:: Smoking status: Patient denies any tobacco usage or history of. - Family history:: not pertinent. - Hospitalizations: : No recent hospitalization is reported. ROS: 09:20 Constitutional: Negative for fever, chills, and weight loss, Skin: Positive for rash rn and itching Exam: 09:20 Constitutional: This is a well developed, well nourished patient who is awake, alert, rn and in no acute distress. Skin: All 4 extremities with erythema and vesicular rash with excoriations. No sign of superinfection or cellulitis. Vital Signs: 09:12 BP 149 / 94; Pulse 103; Resp 18; Temp 98.3; Pulse Ox 100% on R/A; Weight 81.65 kg; hb Height 5 ft. 9 in. ; Pain 2/10; 09:12 Body Mass Index 26.58 (81.65 kg, 175.26 cm) hb 09:12 Pain Scale: Adult hb MDM: 09:12 Patient medically screened. rn 09:20 Differential diagnosis: poison maría rash. Data reviewed: vital signs, nurses notes, and rn as a result, I will discharge patient. Counseling: I had a detailed discussion with the patient and/or guardian regarding the historical points, exam findings, and any diagnostic results supporting the discharge/admit diagnosis, the need for outpatient follow up, to return to the emergency department if symptoms worsen or persist or if there are any questions or concerns that arise at home. Administered Medications: Drug: Dexamethasone IM 10 mg Route: IM; Site: right deltoid; hb :29 Follow up: Response: No adverse reaction hb Disposition Summary: 02/27/23 09:23 Discharge Ordered Location: Home rn Problem: new rn Symptoms: are unchanged rn Condition: Stable rn Diagnosis - Allergic contact dermatitis due to plants, except food rn Followup: rn - With: Private Physician - When: As needed - Reason: Recheck today's complaints, Re-evaluation by your physician Discharge Instructions: - Discharge Summary Sheet rn - Poison María Dermatitis rn Forms: - Medication Reconciliation Form rn - Thank You Letter rn - Antibiotic returned goods repairer - Prescription Opioid Use rn - Patient Portal Instructions rn - Leadership Thank You Letter rn Prescriptions: - Medrol (Jered) 4 mg Oral Tablets, Dose Pack - take 1 tablet by ORAL route as directed - follow package instructions; 1 rn packet; Refills: 0, Product Selection Permitted Signatures: Margarito Shepherd MD MD rn Baxter, Heather, RN RN
[2023-02-27] MEDS ORDERED: dexAMETHasone 10 MG/ML VIAL ONE (09:31)
[2023-02-27 09:34] VITALS: BP 149/94; TEMP 98.3; O2SAT 100
== END 2023-02-27 09:29 | disposition home or self-care (01) ==
LOC: ER 08:55
DX: L23.7 Allergic contact dermatitis due to plants, except food (principal); I10 Essential (primary) hypertension; E78.5 Hyperlipidemia, unspecified; Z88.6 Allergy status to analgesic agent; Z88.8 Allergy status to other drugs, medicaments and biological substances
CPT/HCPCS: 96372; 99283; J1100

== ENCOUNTER 2023-11-22 01:33 | Emergency (ER) | payer OTHER ==
--- OUTSIDE RECORDS SUMMARY | 2023-11-22 01:36 | XMS REPORT | Continuity of Care Document ---
Author Name Unknown Address [address] [facility] [place] [address] [facility] thconnect Address [address] 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 Name Role Phone Jimmy Feliz Attending Clinician Unavailable Sajnay-Mbayo_A_AH Attending Clinician Unavailable Sanjay-Mbayo_A_AH Admitting Clinician Unavailable Payers Payer Name Policy Type Policy Number Effective Date Expirati on Date Source AARP Medicare [employer] 53 [id number] 2022 00:00:00 [facility]PLAC[facility]/ADV ANTAGE - HMO) [id number] [id number] 00:00:00 Problems Condition Name Condition Details Condition Category Status Onset Date Resolution Date Last Treatment Date Treating Clinician Comments Source [id number] GERD without esophagiti s Problem [facility] [id number] Seasonal allergies Problem [facility] [id number] Essential hypertensi on Problem [facility] [id number] Osteoarthr itis of left knee, unspecifie d osteoarthr itis type Problem [facility] [id number] Primary insomnia Problem [facility] [id number] JAUN (generaliz ed anxiety disorder) Problem [facility] [id number] Other chronic pain Problem [facility] [id number] Mixed hyperlipid emia Problem [facility] Allergies, Adverse Reactions, Alerts Allergy Name Allergy Type Status Severity Reaction(s) Onset Date Inactive Date Treating Clinician Comments Source omeprazo le omeprazo le Active Unknown [facility] acetamin ophen acetamin ophen Active Unknown [facility] codeine codeine Active Unknown [facility] zolpidem zolpidem Active Unknown [facility] Social History Social Habit Start Date Stop Date Quantity Comments Source Sex Assigned At [facility] History of Tobacco Use [facility] Smoking Status Start Date Stop Date Source Never Smoker [facility] Former Smoker 2023-08-07 00:00:00 2023-08-07 00:00:00 [facility] Medications Ordered Medication Name Filled Medication Name Start Date Stop Date Current Medication? Ordering Clinician Indication Dosage Frequency Signature (SIG) Comments Components Source Zolpidem Tartrate 5 MG Zolpidem Tartrate 5 MG 5- 00:00: 00 No 1{table t_at_be dtime_a s_neede d} QD Zolpidem Tartrate 5 MG Kenalog (Triamcinol one) Kenalog (Triamcinol one) - 00:00: 00 No 40mg [facility] Kenalog (Triamcinol one) Kenalog (Triamcinol one) - 00:00: 00 No 40mg [facility] Kenalog (Triamcinol one) Kenalog (Triamcinol one) 2 00:00: 00 No 40mg [facility] Fluticasone Propionate 50 MCG/ACT Fluticasone Propionate 50 MCG/ACT 1-09 00:00: 00 No 1{spray _in_eac h_nostr il} QD Fluticason e Propionate 50 MCG/ACT traZODone HCl 150 MG traZODone HCl 150 MG No traZODone HCl 150 MG Lovastatin 40 MG Lovastatin 40 MG No Lovastatin 40 MG Meloxicam 15 MG Meloxicam 15 MG No 1{table t} QD Meloxicam 15 MG EPINEPHrine 0.3 MG/0.3ML EPINEPHrine 0.3 MG/0.3ML No EPINEPHrin e 0.3 MG/0.3ML Pantoprazol e Sodium 40 MG Pantoprazol e Sodium 40 MG No 1{table t} QD Pantoprazo le Sodium 40 MG Aspirin 81 81 MG Aspirin 81 81 MG No 1{table t} QD Aspirin 81 81 MG Pantoprazol e Sodium 40 MG Pantoprazol e Sodium 40 MG No 1{table t} QD Pantoprazo le Sodium 40 MG Gas Relief Gas Relief No Gas Relief Fluticasone Propionate 50 MCG/ACT Fluticasone Propionate 50 MCG/ACT No 1{spray _in_eac h_nostr il} QD Fluticason e Propionate 50 MCG/ACT traZODone HCl 150 MG traZODone HCl 150 MG No traZODone HCl 150 MG PARoxetine HCl 30 MG PARoxetine HCl 30 MG No 1{table t_in_th e_morni ng} QD PARoxetine HCl 30 MG Lovastatin 40 MG Lovastatin 40 MG No Lovastatin 40 MG Methocarbam ol 750 MG Methocarbam ol 750 MG No Methocarba mol 750 MG Meloxicam 15 MG Meloxicam 15 MG No 1{table t} QD Meloxicam 15 MG EPINEPHrine 0.3 MG/0.3ML EPINEPHrine 0.3 MG/0.3ML No EPINEPHrin e 0.3 MG/0.3ML [facility] - [facility] - amLODIPine Besylate 5 MG amLODIPine Besylate 5 MG No amLODIPine Besylate 5 MG amLODIPine Besylate 5 MG amLODIPine Besylate 5 MG No amLODIPine Besylate 5 MG Gas Relief Gas Relief No Gas Relief Methocarbam ol 750 MG Methocarbam ol 750 MG No Methocarba mol 750 MG Lovastatin 40 MG Lovastatin 40 MG No Lovastatin 40 MG Pantoprazol e Sodium 40 MG Pantoprazol e Sodium 40 MG No 1{table t} QD Pantoprazo le Sodium 40 MG Aspirin 81 81 MG Aspirin 81 81 MG No 1{table t} QD Aspirin 81 81 MG EPINEPHrine 0.3 MG/0.3ML EPINEPHrine 0.3 MG/0.3ML No EPINEPHrin e 0.3 MG/0.3ML [facility] - No [facility] - PARoxetine HCl 30 MG PARoxetine HCl 30 MG No 1{table t_in e_morni ng} QD PARoxetine HCl 30 MG traZODone HCl 150 MG traZODone HCl 150 MG No traZODone HCl 150 MG Meloxicam 15 MG Meloxicam 15 MG No Meloxicam 15 MG amLODIPine Besylate 5 MG amLODIPine Besylate 5 MG No amLODIPine Besylate 5 MG Arthritis Pain Arthritis Pain No Arthritis Pain [facility] - No [facility] - Methocarbam ol 750 MG Methocarbam ol 750 MG No Methocarba mol 750 MG Fluticasone Propionate 50 MCG/ACT Fluticasone Propionate 50 MCG/ACT No 1{spray _in_eac h_nostr il} QD Fluticason e Propionate 50 MCG/ACT PARoxetine HCl 30 MG PARoxetine HCl 30 MG No 1{table t_in e_morni ng} QD PARoxetine HCl 30 MG Aspirin 81 81 MG Aspirin 81 81 MG No 1{table t} QD Aspirin 81 81 MG traZODone HCl 150 MG traZODone HCl 150 MG No traZODone HCl 150 MG Lovastatin 40 MG Lovastatin 40 MG No Lovastatin 40 MG Meloxicam 15 MG Meloxicam 15 MG No 1{table t} QD Meloxicam 15 MG EPINEPHrine 0.3 MG/0.3ML EPINEPHrine 0.3 MG/0.3ML No EPINEPHrin e 0.3 MG/0.3ML Pantoprazol e Sodium 40 MG Pantoprazol e Sodium 40 MG No 1{table t} QD Pantoprazo le Sodium 40 MG amLODIPine Besylate 5 MG amLODIPine Besylate 5 MG No amLODIPine Besylate 5 MG Arthritis Pain Arthritis Pain No Arthritis Pain [facility] - No [facility] - Methocarbam ol 750 MG Methocarbam ol 750 MG No Methocarba mol 750 MG Fluticasone Propionate 50 MCG/ACT Fluticasone Propionate 50 MCG/ACT No 1{spray _in_eac h_nostr il} QD Fluticason e Propionate 50 MCG/ACT PARoxetine HCl 30 MG PARoxetine HCl 30 MG No 1{table t_in e_morni ng} QD PARoxetine HCl 30 MG Aspirin 81 81 MG Aspirin 81 81 MG No 1{table t} QD Aspirin 81 81 MG Vital Signs Vital Name Observation Time Observation Value Comments S lala height 2023-11-13 10:00:00 62 [in_i] Commo n [facility] weight 2023-11-13 10:00:00 193.4 [lb_av] Co [facility] temperature 2023-11-13 10:00:00 97.3 [degF] Com [facility] bmi 2023-11-13 10:00:00 35.37 kg/m2 Comm on [facility] oximetry 2023-11-13 10:00:00 95 % [facility]mo n [facility] respiratory rate 2023-11-13 10:00:00 16 /min Common [facility] blood pressure systolic 2023-11-13 10:00:00 136 mm[Hg] Common [facility] blood pressure diastolic 2023-11-13 10:00:00 72 mm[Hg] Common [facility] height 2023-09-06 15:40:00 62 [in_i] [facility]mo n [facility] weight 2023-09-06 15:40:00 189.2 [lb_av] Co [facility] temperature 2023-09-06 15:40:00 97.3 [degF] Com [facility] bmi 2023-09-06 15:40:00 34.6 kg/m2 [facility]mo n [facility] oximetry 2023-09-06 15:40:00 95 % [facility] n [facility] respiratory rate 2023-09-06 15:40:00 16 /min Common [facility] blood pressure systolic 2023-09-06 15:40:00 136 mm[Hg] Common [facility] blood pressure diastolic 2023-09-06 15:40:00 84 mm[Hg] Common [facility] height 2023-08-07 13:00:00 62 [in_i] Commo n [facility] weight 2023-08-07 13:00:00 189.6 [lb_av] Co mmon [facility] temperature 2023-08-07 13:00:00 97.3 [degF] Com [facility] bmi 2023-08-07 13:00:00 34.67 kg/m2 Comm on [facility] oximetry 2023-08-07 13:00:00 97 % [facility]mo n [facility] blood pressure systolic 2023-08-07 13:00:00 139 mm[Hg] [facility] blood pressure diastolic 2023-08-07 13:00:00 84 mm[Hg] [facility] height 2023-07-03 13:20:00 62 [in_i] Commo n [facility] weight 2023-07-03 13:20:00 192.6 [lb_av] Co mmon [facility] temperature 2023-07-03 13:20:00 98.2 [degF] Com mon [facility] bmi 2023-07-03 13:20:00 35.22 kg/m2 Comm on [facility] oximetry 2023-07-03 13:20:00 95 % Commo n [facility] respiratory rate 2023-07-03 13:20:00 16 /min [facility] blood pressure systolic 2023-07-03 13:20:00 140 mm[Hg] [facility] blood pressure diastolic 2023-07-03 13:20:00 82 mm[Hg] [facility] Encounters Start Date/Time End Date/Time Encounter Type Admission Type Attending Clinicians Care Facility Care Department Encounter ID Source 2023-08-03 07:40:00 Outpatient Jimmy Feliz [facility] [id number] [facility] 2023-07-03 13:04:01 Outpatient Jimmy Feliz [facility] [id number] [facility] 2023-11-13 00:00:00 2023-11-13 00:00:00 OFFICE VISIT ESTAB PT LEVEL 4 [facility] [id number] [facility] 2023-09-06 00:00:00 2023-09-06 00:00:00 OFFICE VISIT ESTAB PT LEVEL 3 STLMLC STLMLC [id number] [facility] 2023-08-07 00:00:00 2023-08-07 00:00:00 OFFICE VISIT ESTAB PT LEVEL 4 STLMLC STLMLC [id number] [facility] 2023-07-03 00:00:00 2023-07-03 00:00:00 OFFICE VISIT NEW PT LEVEL 4 STLMLC STLMLC [id number] [facility] 2019-08-13 07:19:00 2019-08-13 07:19:00 Outpatient Sanjay-Melida _A_AH VFP VFP [id number] [facility] Results Test Description Test Time Test Comments Results Result Co mments Source Knee Left 3 View Knee Left 3 View
[2023-11-22] MEDS ORDERED: DIAZEPAM 5 MG TABLET ONE ×2 (02:49→04:35)
[2023-11-22] MEDS ORDERED: LIDOCAINE 1% 20 ML MDV ONE (02:49)
[2023-11-22] MEDS ORDERED: TDAP (DIPHTH,PERTUSS(ACELL),TET VAC) 0.5 ML VIAL IMVAC ONE (02:49)
[2023-11-22 03:01] LABS: Absolute Basophils 0.1 K/uL (0-0.5); Absolute Eosinophils 0.4 K/uL (0-0.5); Absolute Lymphocytes (CBC) 3.3 K/uL (0.7-4.9); Absolute Monocytes 1.4 K/uL (0.1-1.3); Absolute Neutrophil 7.6 K/uL (1.8-8.0); Basophils % 0.7 % (0-1.3); Eosinophils % 3.2 % (0-4.4); Hematocrit 46.4 % (39.6-49.0); Lymphocytes % 25.6 % (15.3-44.8); MCH 28.5 pg (27.0-35.0); MCHC 32.4 g/dL (32.0-36.0); MCV 87.9 fL (80-100); Neutrophils % 59.5 % (41.7-73.7); Platelets 280 thou/uL (152-406); RBC Red Blood Cell Count 5.28 M/uL (4.33-5.43); Red Cell Distribution Width 14.3 % (12.1-15.2)
[2023-11-22 03:04] LABS: PT Prothrombin Time 12.8 SECONDS (9.5-12.5); PTT, Activated Partial Thromb 34.2 SECONDS (24.3-36.9); Protime INR 1.17
[2023-11-22 03:14] LABS: Albumin 4.2 g/dL (3.4-5.0); Albumin/Globulin Ratio 1.4 (1.1-1.8); Anion Gap 7.5 mEq/L (5.0-15.0); Bilirubin Direct 0.2 mg/dL (0-0.2); Bilirubin Indirect, Calculated 0.6 mg/dL (0.2-0.8); Bilirubin Total 0.8 mg/dL (0.2-1.0); Globulin 2.9 g/dL (2.3-3.5); Magnesium 2.2 mg/dL (1.6-2.4); Potassium 3.5 mEq/L (3.5-5.1); Protein, Total 7.1 g/dL (6.4-8.2); Troponin High Sensitivity 11.1 pg/mL (<58.9)
--- NOTE | 2023-11-22 04:36 | ER ---
Nurse's Notes [facility] Name: Eloy Dunn Jr Age: 87 yrs Sex: Male : 1935 Arrival Date: 11/22/2023 Time: :33 Bed 7 Private MD: Diagnosis: Laceration without foreign body of scalp;Syncope and collapse secondary to Ambien, acute head injury, concussion, brain mass, pulmonary nodule, posterior scalp laceration Presentation: 11/21 01:33 Chief complaint: Patient states: I was walking to the bathroom when "I fell asleep", jw7 fell and hit my head. I do take medicine to hep me sleep. 01:33 Coronavirus screen: At this time, the client does not indicate any symptoms associated jw7 with coronavirus-19. Ebola Screen: No symptoms or risks identified at this time. Initial Sepsis Screen: Does the patient meet any 2 criteria? No. Patient's initial sepsis screen is negative. Does the patient have a suspected source of infection? No. Patient's initial sepsis screen is negative. Risk Assessment: Do you want to hurt yourself or someone else? Patient reports no desire to harm self or others. Onset of symptoms was November 22, 2023. :33 Method Of Arrival: EMS: [facility] 7 01:33 Acuity: GIA 3 jw7 Triage Assessment: :33 General: Appears in no apparent distress. comfortable, Behavior is calm, cooperative, jw7 appropriate for age. Pain: Complains of pain in scalp Pain does not radiate. Pain currently is 5 out of 10 on a pain scale. Quality of pain is described as throbbing, Pain began suddenly, Is continuous. EENT: No deficits noted. No signs and/or symptoms were reported regarding the EENT system. Neuro: Level of Consciousness is awake, alert, obeys commands, Oriented to person, place, time, situation, Appropriate for age. Cardiovascular: Heart tones S1 S2 present Capillary refill < 3 seconds Patient's skin is warm and dry. Respiratory: Airway is patent Trachea midline Respiratory effort is even, unlabored, Respiratory pattern is regular, symmetrical, Breath sounds are clear bilaterally. GI: Abdomen is round non-distended, Bowel sounds present X 4 quads. Abd is soft and non tender X 4 quads. : No deficits noted. No signs and/or symptoms were reported regarding the genitourinary system. Derm: Skin is healthy with good turgor, is fragile, Skin is dry, Skin is normal, Skin temperature is warm Wound noted left side of the back of head. Musculoskeletal: Circulation, motion, and sensation intact. Range of motion: intact in all extremities. Historical: - Allergies: : ACETAMINOPHEN; jw7 : Codeine; jw7 : Omeprazole; jw7 - Home Meds: : Aspirin Oral [Active]; HTN Meds [Active]; jw7 - PMHx: :33 Hyperlipidemia; Hypertension; Ulcers; jw7 - PSHx: :33 None; jw7 - Immunization history:: Adult Immunizations up to date, Client reports receiving the 2nd dose of the Covid vaccine, Last tetanus immunization: < 5 years ago Pneumococcal vaccine is up to date, Flu vaccine is up to date. - Infectious Disease History:: Denies. - Social history:: Smoking status: Patient denies any tobacco usage or history of. Patient/guardian denies using alcohol, street drugs, IV drugs. - Family history:: not pertinent. Screenin:33 [facility] ED Fall Risk Assessment (Adult) History of falling in the last 3 months, jw7 including since admission Yes- single mechanical fall (1 pt) Confusion or Disorientation No (0 pts) Intoxicated or Sedated No (0 pts) Impaired Gait No (0 pts) Mobility Assist Device Used No (0 pt) Altered Elimination No (0 pt) Score/Fall Risk Level 0 - 2 = Low Risk Oriented to surroundings, Maintained a safe environment, Educated pt \\T\\ family on fall prevention, incl call for assistance when getting out of bed. Abuse screen: Denies threats or abuse. Denies injuries from another. Nutritional screening: No deficits noted. Tuberculosis screening: No symptoms or risk factors identified. Assessment: 01:35 General: See Triage Assessment. jw7 02:30 Reassessment: Patient appears in no apparent distress at this time. No changes from jw7 previously documented assessment. Patient and/or family updated on plan of care and expected duration. Pain level reassessed. Patient is alert, oriented x 3, equal unlabored respirations, skin warm/dry/pink. 03:30 Reassessment: Patient appears in no apparent distress at this time. No changes from jw7 previously documented assessment. Patient and/or family updated on plan of care and expected duration. Pain level reassessed. Patient is alert, oriented x 3, equal unlabored respirations, skin warm/dry/pink. 04:30 Reassessment: Patient appears in no apparent distress at this time. Patient and/or jw7 family updated on plan of care and expected duration. Pain level reassessed. Patient is alert, oriented x 3, equal unlabored respirations, skin warm/dry/pink. Patient states symptoms have improved. Vital Signs: 01:33 BP 165 / 96; Pulse 84; Resp 16 S; Temp 97.9(O); Pulse Ox 97% on R/A; Weight 86.18 kg; jw7 Height 5 ft. 9 in. ; Pain 5/10; 02:30 BP 136 / 94; Pulse 93; Resp 17 S; Pulse Ox 99% on R/A; jw7 03:30 BP 123 / 81; Pulse 87; Resp 18 S; Pulse Ox 95% on R/A; jw7 04:30 BP 109 / 76; Pulse 96; Resp 17 S; Pulse Ox 95% on R/A; jw7 01:33 Body Mass Index 28.06 (86.18 kg, 175.26 cm) jw7 01:33 Pain Scale: Adult jw7 Vader Coma Score: 05:51 Eye Response: spontaneous(4). Motor Response: obeys commands(6). Verbal Response: sp4 oriented(5). Total: 15. ED Course: 01:33 Arm band placed on. jw7 01:33 Patient has correct armband on for positive identification. Bed in low position. Call jw7 light in reach. Side rails up X2. Provided Education on: Use of Call Light. 01:37 Patient arrived in ED. jw7 01:44 Efe Gifford MD is Attending Physician. sp4 02:13 CT Head C Spine In Process Unspecified. EDMS 02:29 Triage completed. jw7 02:45 Inserted saline lock: in right upper arm, using aseptic technique. Blood collected. vc1 02:45 Initial lab(s) drawn, by me, sent to lab. vc1 03:11 EKG done, by ED staff. vk 04:30 Assist provider with laceration repair on left side of the back of head that was jw7 between 2.6 to 7.5 cm using sutures. Set up tray. Performed by Efe Gifford MD Dressed with Kerlix, Xeroform, Patient tolerated well. 04:59 IV discontinued, intact, bleeding controlled, No redness/swelling at site. Pressure jw7 dressing applied. Administered Medications: 03:10 Drug: Boostrix Tdap IM 0.5 ml IM once; as a single dose Route: IM; Site: left deltoid; jw7 04:29 Follow up: Response: No adverse reaction jw7 03:10 Drug: Diazepam PO 5 mg PO once Route: PO; jw7 04:30 Follow up: Response: No adverse reaction; Marked relief of symptoms jw7 04:29 Drug: Lidocaine Infiltration (1 %) 20 ml 20 ml Infiltration once; to bedside Volume: 20 jw7 ml; Route: Infiltration; 04:30 Follow up: Response: No adverse reaction; Marked relief of symptoms jw7 04:30 Drug: Diazepam PO 5 mg PO once Route: PO; jw7 04:56 Follow up: Response: No adverse reaction; Medication administered at discharge. jw7 Medication: 03:10 Vaccine Information Statement (VIS) provided today. Questions and/or concerns jw7 addressed. VIS edition date: January 28, 2021. Outcome: 04:35 Discharge ordered by . favio 04:59 Discharged to home ambulatory, with family, jwTrina 04:59 Condition: stable 04:59 Discharge instructions given to patient, family, Instructed on discharge instructions, follow up and referral plans. medication usage, wound care, Demonstrated understanding of instructions, follow-up care, medications, wound care, Prescriptions given X 1, 05:00 Patient left the ED. jw7 Signatures: Dispatcher [employer] EDMS Cayla Davis RN RN vc1 Alexsandra Turpin RN RN jwEfe Barnett MD MD sp4 Debi Bush
--- NOTE | 2023-11-22 04:36 | EDPHYS ---
Physician Documentation [facility] Name: Eloy Dunn Jr Age: 87 yrs Sex: Male : 1935 Arrival Date: 11/22/2023 Time: 01:33 Bed 7 Private MD: ED Physician Efe Gifford HPI: 11/21 01:44 This 87 yrs old Male presents to ER via Unassigned with complaints of fall sp4 and laceration . 05:51 87-year-old male presents after he fell at home acutely after passing out after taking sp4 zolpidem. Patient states he may have fell against the table causing laceration to posterior scalp. Patient denies any pain at this time.. Historical: - Allergies: 01:33 ACETAMINOPHEN; jw7 01:33 Codeine; jw7 01:33 Omeprazole; jw7 - Home Meds: 01:33 Aspirin Oral [Active]; HTN Meds [Active]; jw7 - PMHx: 01:33 Hyperlipidemia; Hypertension; Ulcers; jw7 - PSHx: 01:33 None; jw7 - Immunization history:: Adult Immunizations up to date, Client reports receiving the 2nd dose of the Covid vaccine, Last tetanus immunization: < 5 years ago Pneumococcal vaccine is up to date, Flu vaccine is up to date. - Infectious Disease History:: Denies. - Social history:: Smoking status: Patient denies any tobacco usage or history of. Patient/guardian denies using alcohol, street drugs, IV drugs. - Family history:: not pertinent. ROS: 05:51 Constitutional: Negative for fever, chills, and weight loss, positive for syncope at sp4 home positive for head injury positive for posterior scalp laceration. 05:51 All other systems are negative, Exam: 03:55 ECG was reviewed by the Attending Physician. EKG at 0302 normal sinus rhythm with sp4 first-degree AV block rate 88. 05:51 Constitutional: This is a well developed, well nourished patient who is awake, alert, sp4 and in no acute distress. Head/Face: Normocephalic, left posterior scalp laceration associated with contusion. C- shaped laceration 5 cm long Eyes: Pupils equal round and reactive to light, extra-ocular motions intact. Lids and lashes normal. Conjunctiva and sclera are not injected. Cornea within normal limits. Periorbital areas with no swelling, redness, or edema. ENT: Nares patent. No nasal discharge, no septal abnormalities noted. Tympanic membranes are normal and external auditory canals are clear. Oropharynx with no redness, swelling, or masses, exudates, or evidence of obstruction, uvula midline. Mucous membranes moist. Neck: Trachea midline, no thyromegaly or masses palpated, and no cervical lymphadenopathy. Supple, full range of motion without nuchal rigidity, or vertebral point tenderness. Chest/axilla: Normal chest wall appearance and motion. Nontender with no deformity. No lesions are appreciated. Cardiovascular: Regular rate and rhythm with a normal S1 and S2. No gallops, murmurs, or rubs. Normal PMI, no JVD. No pulse deficits. Respiratory: Lungs have equal breath sounds bilaterally, clear to auscultation and percussion. No rales, rhonchi or wheezes noted. No increased work of breathing, no retractions or nasal flaring. Abdomen/GI: Soft, with normal bowel sounds. No distension or tympany. No guarding or rebound. No evidence of tenderness throughout. Back: No spinal tenderness. No costovertebral tenderness. Skin: Warm, dry with normal turgor. Normal color with no rashes, no lesions, and no evidence of cellulitis. MS/ Extremity: Pulses equal, no cyanosis. Neurovascular intact. Full, normal range of motion. Neuro: Awake and alert, GCS 15, oriented to person, place, time, and situation. Cranial nerves II-XII grossly intact. Motor strength 5/5 in all extremities. Sensory grossly intact. Psych: Awake, alert, with orientation to person, place and time. Behavior, mood, and affect are within normal limits Vital Signs: 01:33 BP 165 / 96; Pulse 84; Resp 16 S; Temp 97.9(O); Pulse Ox 97% on R/A; Weight 86.18 kg; jw7 Height 5 ft. 9 in. ; Pain 5/10; 02:30 BP 136 / 94; Pulse 93; Resp 17 S; Pulse Ox 99% on R/A; jw7 03:30 BP 123 / 81; Pulse 87; Resp 18 S; Pulse Ox 95% on R/A; jw7 04:30 BP 109 / 76; Pulse 96; Resp 17 S; Pulse Ox 95% on R/A; jw7 01:33 Body Mass Index 28.06 (86.18 kg, 175.26 cm) jw7 01:33 Pain Scale: Adult jw7 Bebeto Coma Score: 05:51 Eye Response: spontaneous(4). Motor Response: obeys commands(6). Verbal Response: sp4 oriented(5). Total: 15. Laceration: 05:51 Wound Repair of 5cm ( 2.0in ) subcutaneous laceration to left parietal area. sp4 Irregularly shaped.. Hemostasis noted.. Distal neuro/vascular/tendon intact. Anesthesia: Wound infiltrated with 20 mls of 1% lidocaine. Wound prep: Moderate cleansing by me, Copious irrigation. Skin closed with 8 3-0 Silk using interrupted sutures and sterile technique. Dressed with 4x4's, Kerlix, non-adherent dressing. Patient tolerated fair. MDM: 01:50 Patient medically screened. sp4 04:26 ED course: EXAM DESCRIPTION: Head C Spine Mpr Wo Con CLINICAL HISTORY: SYNCOPE sp4 COMPARISON: None Available. TECHNIQUE: Multiple helical axial tomographic images were obtained of the head and cervical spine without intravenous contrast. This exam was performed according to our departmental dose-optimization program, which includes automated exposure control, adjustment of the mA and/or kV according to patient size and/or use of iterative reconstruction technique. FINDINGS: There is no acute intracranial hemorrhage. There is a 3.7 cm isodense mass abutting the left paramedian falx in the frontoparietal region without significant mass effect (series 201, image 23). Generalized brain volume loss is demonstrated. No midline shift. No ventriculomegaly. Stewart-white matter differentiation is maintained. Paranasal sinuses are clear. Mastoid air cells and middle ear spaces are clear. Orbits and orbital contents are unremarkable. No acute calvarial fracture. No evidence of an acute fracture of the cervical spine. Multilevel disc space narrowing and osteophyte formation demonstrated. Prominent anterior osteophytes from C3 to C5 noted. Facet degenerative changes are present. There is ankylosis of left-sided facets at C3-C4. There is a 1 cm nodular density in the right lung apex (series 302, image 90). IMPRESSION: 1. No acute intracranial process. 2. Left paramedian intracranial mass in the frontoparietal region which could represent a meningioma and can be followed up with contrast-enhanced CT or MRI as appropriate. 3. No evidence of an acute fracture of the cervical spine. 4. Right apical 1 cm nodular density. Per Fleischner Society Guidelines, recommend prompt non-contrast Chest CT for further evaluation. These guidelines do not apply to immunocompromised patients and patients with cancer. Follow up in patients with significant comorbidities as clinically warranted. For lung cancer screening, adhere to Lung-RADS guidelines. Reference: Radiology. 2017; 284(1):228-43. 5. Cervical spine degenerative changes. Electronically signed by: Tk Wright MD 11/22/2023 04:02 AM. 04:34 ED course: IMPRESSION: 1. No acute intracranial process. 2. Left paramedian sp4 intracranial mass in the frontoparietal region which could represent a meningioma and can be followed up with contrast-enhanced CT or MRI as appropriate. 3. No evidence of an acute fracture of the cervical spine. 4. Right apical 1 cm nodular density. Per Fleischner Society Guidelines, recommend prompt non-contrast Chest CT for further evaluation. These guidelines do not apply to immunocompromised patients and patients with cancer. Follow up in patients with significant comorbidities as clinically warranted. For lung cancer screening, adhere to Lung-RADS guidelines. 5. Cervical spine degenerative changes.. 05:55 Differential Diagnosis altered mental status, Syncope, acute head injury.. Data sp4 reviewed: vital signs, nurses notes, lab test result(s), EKG, radiologic studies, CT scan. Consideration of Admission/Observation Escalation of care including admission/observation considered. ED course: Laceration repaired. Advised suture removal after 14 days. There is report of a left paramedian intracranial mass in frontoparietal region which could represent a meningioma and can be followed with contrast enhanced CT or MRI. Patient advised to see his rn primary care for MRI of the head. No cervical spine fractures, patient also incidentally found to have 1 cm right apical lung nodule. Patient's family advised follow-up with rn primary care for comprehensive CT of the chest. . 11/21 01:50 Order name: Basic Metabolic Panel; Complete Time: 03: sp4 11/21 01:50 Order name: CBC with Diff; Complete Time: : sp4 11/21 01:50 Order name: Hepatic Function; Complete Time: : sp4 11/21 01:50 Order name: Magnesium; Complete Time: 03: 11/21 01:50 Order name: Protime (+inr); Complete Time: 03:33 11/21 01:50 Order name: Ptt, Activated; Complete Time: 03:33 11/21 01:50 Order name: Troponin High Sensitivity; Complete Time: 03:33 11/21 01:50 Order name: CT Head C Spine 11/21 01:49 Order name: Dressing - Wound; Complete Time: 04:29 11/21 01:49 Order name: Gloves, Sterile; Complete Time: 03:16 11/21 01:49 Order name: Setup Suture Tray; Complete Time: 03:16 11/21 01:50 Order name: Cardiac monitoring; Complete Time: 03:10 11/21 01:50 Order name: EKG - Nurse/Tech; Complete Time: 03:10 11/21 01:50 Order name: IV Saline Lock; Complete Time: 02:42 11/21 01:50 Order name: Labs collected and sent; Complete Time: 02:42 11/21 01:50 Order name: NPO; Complete Time: 01:59 11/21 01:50 Order name: O2 Per Protocol; Complete Time: 01:59 11/21 01:50 Order name: O2 Sat Monitoring; Complete Time: 01:59 EC:55 Rate is 88 beats/min. Rhythm is regular, Sinus Rhythm. QRS [place] is Normal. CA interval sp4 is prolonged. QRS interval is normal. QT interval is normal. No Q waves. No ST changes noted. Clinical impression: No evidence of ischemia. Interpreted by me. Reviewed by me. Administered Medications: 03:10 Drug: Boostrix Tdap IM 0.5 ml IM once; as a single dose Route: IM; Site: left deltoid; jw7 04:29 Follow up: Response: No adverse reaction jw7 03:10 Drug: Diazepam PO 5 mg PO once Route: PO; jw7 04:30 Follow up: Response: No adverse reaction; Marked relief of symptoms jw7 04:29 Drug: Lidocaine Infiltration (1 %) 20 ml 20 ml Infiltration once; to bedside Volume: 20 jw7 ml; Route: Infiltration; 04:30 Follow up: Response: No adverse reaction; Marked relief of symptoms jw7 04:30 Drug: Diazepam PO 5 mg PO once Route: PO; jw7 04:56 Follow up: Response: No adverse reaction; Medication administered at discharge. jw7 Disposition Summary: 11/22/23 04:35 Discharge Ordered Problem: new sp4 Symptoms: have improved sp4 Condition: Stable sp4 Diagnosis - Laceration without foreign body of scalp sp4 - Syncope and collapse secondary to Ambien, acute head injury, concussion, brain sp4 mass, pulmonary nodule, posterior scalp laceration Followup: sp4 - With: Private Physician - When: 10 - 14 days - Reason: Recheck today's complaints Discharge Instructions: - Discharge Summary Sheet sp4 - Laceration Care, Adult, [id number] sp4 Forms: - Patient Portal Instructions sp4 Prescriptions: - promethazine 25 mg Oral Tablet - take 1 tablet ORAL route every 6 hours As needed; 20 tablet; Refills: 0, sp4 Product Selection Permitted Signatures: Dispatcher Med[employer] Alexsandra Perry RN RN jw7 Efe Gifford MD MD sp4 Corrections: (The following items were deleted from the chart) 01:51 01:50 BASIC METABOLIC PANEL+C.LAB.BRZ ordered. EDMS EDMS 01:51 01:50 CBC+H.LAB.BRZ ordered. EDMS EDMS 01:51 01:50 HEPATIC FUNCTION+C.LAB.BRZ ordered. EDMS EDMS 01:51 01:50 MAGNESIUM+C.LAB.BRZ ordered. EDMS EDMS 01:51 01:50 PROTIME (+INR)+COAG.LAB.BRZ ordered. EDMS EDMS 01:51 01:50 PTT, ACTIVATED+COAG.LAB.BRZ ordered. EDMS EDMS 01:51 01:50 Troponin High Sensitivity+C.LAB.BRZ ordered. EDMS EDMS 01:51 01:51 Head C Spine MPR Wo Con+CT.RAD.BRZ ordered. EDMS EDMS
[2023-11-22 05:12] VITALS: BP 109/76; TEMP 97.9; O2SAT 95
--- NOTE | 2023-11-22 12:09 | RAD REPORT ---
EXAM DESCRIPTION: CT - Head C Spine Mpr Wo Con - 11/22/2023 6:12 am CLINICAL HISTORY: SYNCOPE COMPARISON: None Available. TECHNIQUE: Multiple helical axial tomographic images were obtained of the head and cervical spine wi thout intravenous contrast. This exam was performed according to our departmental dose-optimization p rogram, which includes automated exposure control, adjustment of the mA and/or kV according to patien t size and/or use of iterative reconstruction technique. FINDINGS: There is no acute intracranial hemorrhage. There is a 3.7 cm isodense mass abutting the le ft paramedian falx in the frontoparietal region without significant mass effect (series 201, image 23 ). Generalized brain volume loss is demonstrated. No midline shift. No ventriculomegaly. Stewart-white m atter differentiation is maintained. Paranasal sinuses are clear. Mastoid air cells and middle ear spaces are clear. Orbits and orbital co ntents are unremarkable. No acute calvarial fracture. No evidence of an acute fracture of the cervical spine. Multilevel disc space narrowing and osteophyt e formation demonstrated. Prominent anterior osteophytes from C3 to C5 noted. Facet degenerative king ges are present. There is ankylosis of left-sided facets at C3-C4. There is a 1 cm nodular density in the right lung apex (series 302, image 90). IMPRESSION: 1. No acute intracranial process. 2. Left paramedian intracranial mass in the frontoparietal region which could represent a meningiom a and can be followed up with contrast-enhanced CT or MRI as appropriate. 3. No evidence of an acute fracture of the cervical spine. 4. Right apical 1 cm nodular density. Per Fleischner Society Guidelines, recommend prompt non-contr ast Chest CT for further evaluation. These guidelines do not apply to immunocompromised patients and patients with cancer. Follow up in patients with significant comorbidities as clinically warranted. F or lung cancer screening, adhere to Lung-RADS guidelines. Reference: Radiology. 2017; 284(1):228-43. 5. Cervical spine degenerative changes. Electronically signed by: Tk Wright MD 11/22/2023 04:02 AM CDT Due to temporary technical issues with the PACS/Fluency reporting system, reports are being signed by the in house radiologist without review as a courtesy to ensure prompt reporting. The interpreting r adiologist is fully responsible for the content of the report.
--- NOTE | 2023-11-23 16:55 | EKG ---
Test Date: 2023-11-22 Test Time: 03:02:30 Automatic Packer Operator: DIANA MEASUREMENT RESULTS: Intervals: Rate: 88 PA: 224 QRSD: 88 QT: 360 QTc: 435 [place]: P: 29 PA: 224 QRS: 47 T: 54 INTERPRETIVE STATEMENTS: Sinus rhythm with 1st degree AV block Nonspecific T wave abnormality Abnormal ECG Compared to ECG 11/20/2015 10:37:11 First degree AV block now present T-wave abnormality now present Sinus bradycardia no longer present Electronically Signed On 11-23-23 16:49:38 CDT by Aries Villegas
== END 2023-11-22 05:00 | disposition home or self-care (01) ==
LOC: ER 01:33
PROC: 0HQ0XZZ Repair Scalp Skin, External Approach (ICD-10-PCS; principal; 2023-11-22)
DX: S01.01XA Laceration without foreign body of scalp, initial encounter (principal); S06.0X0A Concussion without loss of consciousness, initial encounter; R55 Syncope and collapse; G93.89 Other specified disorders of brain; R91.1 Solitary pulmonary nodule; W18.30XA Fall on same level, unspecified, initial encounter; Z79.82 Long term (current) use of aspirin
CPT/HCPCS: 93005; 85025; 80048; 36415; 83735; 85610; 80076; 85730; 84484; 70450; 72125; 96372; 99285; 12002; J2001; 12001

== ENCOUNTER 2025-02-01 00:20 | Emergency (ER) | payer OTHER ==
--- OUTSIDE RECORDS SUMMARY | 2025-02-01 00:26 | XMS REPORT | Continuity of Care Document ---
Author Name Unknown Address [address] [facility] [address] [place] [address] Organization [facility] [place] Address [address] [facility] [address] [place] [address] Care Team Providers Care Reed Cleaner Name Role Phone Jimmy Feliz Attending Clinician Unavailable Sanjay-Mbayo_A_AH Attending Clinician Unavailable Sanjay-Mbayo_A_AH Admitting Clinician Unavailable Payers Payer Name Policy Type Policy Number Effective Date Expirati on Date Source [facility] SURY Casas (Regional PPO C-SNP) [id number] 2022 00:00:00 [facility] (MEDICARE REPLACEMENT/ADV ANTAGE - HMO) [id number] 00:00:00 Problems Condition Name Condition Details Condition Category Status Onset Date Resolution Date Last Treatment Date Treating Clinician Comments Source [id number] GERD without esophagiti s Problem [facility] [id number] Seasonal allergies Problem [facility] [id number] Essential hypertensi on Problem [facility] [id number] Osteoarthr itis of left knee, unspecifie d osteoarthr itis type Problem [facility] [id number] Primary insomnia Problem [facility] [id number] JAUN (generaliz ed anxiety disorder) Problem [facility] [id number] Meningioma Problem [facility] [id number] Other chronic pain Problem [facility] [id number] Mixed hyperlipid emia Problem [facility] [id number] Osteoarthr itis of right knee, unspecifie d osteoarthr itis type Problem [facility] [id number] Type 2 diabetes mellitus with hyperglyce dinesh, without long-term current use of insulin Problem [facility] [id number] Kidney stone Problem [facility] Allergies, Adverse Reactions, Alerts Allergy Name Allergy Type Status Severity Reaction(s) Onset Date Inactive Date Treating Clinician Comments Source acetamin ophen acetamin ophen Active Unknown [facility] omeprazo le omeprazo le Active Unknown [facility] codeine codeine Active Unknown [facility] zolpidem zolpidem Active Unknown Commo [facility] Social History Social Habit Start Date Stop Date Quantity Comments Source Sex Assigned At [facility] History of Tobacco Use [facility] Smoking Status Start Date Stop Date Source Never Smoker [facility] Former Smoker 2023-08-07 00:00:00 2023-08-07 00:00:00 [facility] Medications Ordered Medication Name Filled Medication Name Start Date Stop Date Current Medication? Ordering Clinician Indication Dosage Frequency Signature (SIG) Comments Components Source ALPRAZolam 0.25 MG ALPRAZolam 0.25 MG 12-13 00:00: 00 No 1{table t} ALPRAZolam 0.25 MG Tamsulosin HCl 0.4 MG Tamsulosin HCl 0.4 MG 12-02 00:00: 00 No 1{capsu le} QD Tamsulosin HCl 0.4 MG traZODone HCl 50 MG traZODone HCl 50 MG 12-02 00:00: 00 No 1{table t_at_be dtime_a s_neede d} QD traZODone HCl 50 MG Kenalog (Triamcinol one) Kenalog (Triamcinol one) 2-13 00:00: 00 No 40mg Common [facility] Aspirin 81 81 MG Aspirin 81 81 MG No 1{table t} QD Aspirin 81 81 MG Pantoprazol e Sodium 40 MG Pantoprazol e Sodium 40 MG No 1{table t} QD Pantoprazo le Sodium 40 MG Arthritis Pain Arthritis Pain No Arthritis Pain Fluticasone Propionate 50 MCG/ACT Fluticasone Propionate 50 MCG/ACT No 1{spray _in_eac h_nostr il} QD Fluticason e Propionate 50 MCG/ACT PARoxetine HCl 30 MG PARoxetine HCl 30 MG No 1{table t_in_th e_morni ng} QD PARoxetine HCl 30 MG Methocarbam ol 750 MG Methocarbam ol 750 MG No Methocarba mol 750 MG EPINEPHrine 0.3 MG/0.3ML EPINEPHrine 0.3 MG/0.3ML No EPINEPHrin e 0.3 MG/0.3ML [facility] - No [facility] - amLODIPine Besylate 5 MG amLODIPine Besylate 5 MG No 1{table t} QD amLODIPine Besylate 5 MG Atorvastati n Calcium 40 MG Atorvastati n Calcium 40 MG No 1{table t} QD Atorvastat in Calcium 40 MG Ondansetron 4 MG Ondansetron 4 MG No Ondansetro n 4 MG Acetaminoph en-Codeine 300-30 MG Acetaminoph en-Codeine 300-30 MG No Acetaminop hen-Codein e 300-30 MG Vital Signs Vital Name Observation Time Observation Value Comments S ource height 2025-01-09 11:15:00 62 [in_i] Commo n [facility] weight 2025-01-09 11:15:00 192.2 [lb_av] Co mmon [facility] temperature 2025-01-09 11:15:00 97.3 [degF] Com mon [facility] bmi 2025-01-09 11:15:00 35.15 kg/m2 Comm on [facility] oximetry 2025-01-09 11:15:00 95 % Commo n [facility] blood pressure systolic 2025-01-09 11:15:00 112 mm[Hg] [facility] blood pressure diastolic 2025-01-09 11:15:00 73 mm[Hg] [facility] height 2024-07-11 10:40:00 62 [in_i] Commo n [facility] weight 2024-07-11 10:40:00 191.4 [lb_av] Co mmon [facility] temperature 2024-07-11 10:40:00 97.3 [degF] Com mon [facility] bmi 2024-07-11 10:40:00 35 kg/m2 Commo n [facility] oximetry 2024-07-11 10:40:00 95 % [facility] respiratory rate 2024-07-11 10:40:00 16 /min [facility] blood pressure systolic 2024-07-11 10:40:00 119 mm[Hg] [facility] blood pressure diastolic 2024-07-11 10:40:00 73 mm[Hg] [facility] height 2024-05-08 13:00:00 62 [in_i] Commo n [facility] weight 2024-05-08 13:00:00 188.0 [lb_av] Co mmon [facility] temperature 2024-05-08 13:00:00 97.3 [degF] Com mon [facility] bmi 2024-05-08 13:00:00 34.38 kg/m2 Comm on [facility] oximetry 2024-05-08 13:00:00 95 % Commo [facility] respiratory rate 2024-05-08 13:00:00 16 /min [facility] blood pressure systolic 2024-05-08 13:00:00 122 mm[Hg] [facility] blood pressure diastolic 2024-05-08 13:00:00 64 mm[Hg] [facility] height 2024-04-10 11:00:00 62 [in_i] Commo n [facility] weight 2024-04-10 11:00:00 188.4 [lb_av] Co mmon [facility] temperature 2024-04-10 11:00:00 97.9 [degF] Com [facility] bmi 2024-04-10 11:00:00 34.46 kg/m2 Comm on [facility] oximetry 2024-04-10 11:00:00 95 % Commo n [facility] respiratory rate 2024-04-10 11:00:00 16 /min [facility] blood pressure systolic 2024-04-10 11:00:00 122 mm[Hg] [facility] blood pressure diastolic 2024-04-10 11:00:00 71 mm[Hg] Common [facility] height 2024-04-10 11:00:00 62 [in_i] Commo n [facility] weight 2024-04-10 11:00:00 188.4 [lb_av] Co mmon [facility] temperature 2024-04-10 11:00:00 97.9 [degF] Com [facility] bmi 2024-04-10 11:00:00 34.46 kg/m2 Comm on [facility] oximetry 2024-04-10 11:00:00 95 % Commo n [facility] respiratory rate 2024-04-10 11:00:00 16 /min [facility] blood pressure systolic 2024-04-10 11:00:00 122 mm[Hg] [facility] blood pressure diastolic 2024-04-10 11:00:00 71 mm[Hg] [facility] height 2024-03-24 13:00:00 62 [in_i] Commo n [facility] weight 2024-03-24 13:00:00 185.4 [lb_av] Co [facility] temperature 2024-03-24 13:00:00 97.8 [degF] Com [facility] bmi 2024-03-24 13:00:00 33.91 kg/m2 Comm on [facility] oximetry 2024-03-24 13:00:00 95 % Commo n [facility] respiratory rate 2024-03-24 13:00:00 16 /min [facility] blood pressure systolic 2024-03-24 13:00:00 138 mm[Hg] [facility] blood pressure diastolic 2024-03-24 13:00:00 70 mm[Hg] [facility] height 2024-03-11 15:00:00 62 [in_i] Commo n [facility] weight 2024-03-11 15:00:00 191.8 [lb_av] Co [facility] temperature 2024-03-11 15:00:00 97.4 [degF] Com [facility] bmi 2024-03-11 15:00:00 35.08 kg/m2 Comm on [facility] oximetry 2024-03-11 15:00:00 94 % Commo n [facility] blood pressure systolic 2024-03-11 15:00:00 142 mm[Hg] Common [facility] blood pressure diastolic 2024-03-11 15:00:00 84 mm[Hg] Common [facility] height 2023-12-24 11:00:00 62 [in_i] Commo n [facility] weight 2023-12-24 11:00:00 188.8 [lb_av] Co [facility] temperature 2023-12-24 11:00:00 97.3 [degF] Com [facility] bmi 2023-12-24 11:00:00 34.53 kg/m2 Comm on [facility] oximetry 2023-12-24 11:00:00 96 % Commo n [facility] respiratory rate 2023-12-24 11:00:00 16 /min [facility] blood pressure systolic 2023-12-24 11:00:00 127 mm[Hg] Common [facility] blood pressure diastolic 2023-12-24 11:00:00 68 mm[Hg] [facility] height 2023-12-14 10:40:00 62 [in_i] Commo n [facility] weight 2023-12-14 10:40:00 190.8 [lb_av] Co mmon [facility] temperature 2023-12-14 10:40:00 97.0 [degF] Com [facility] bmi 2023-12-14 10:40:00 34.89 kg/m2 Comm on [facility] oximetry 2023-12-14 10:40:00 93 % Commo n [facility] respiratory rate 2023-12-14 10:40:00 16 /min [facility] blood pressure systolic 2023-12-14 10:40:00 141 mm[Hg] Common [facility] blood pressure diastolic 2023-12-14 10:40:00 81 mm[Hg] Common [facility] height 2023-12-03 15:00:00 62 [in_i] Commo n [facility] weight 2023-12-03 15:00:00 191.6 [lb_av] Co mmon [facility] temperature 2023-12-03 15:00:00 97.5 [degF] Com [facility] bmi 2023-12-03 15:00:00 35.04 kg/m2 Comm on [facility] oximetry 2023-12-03 15:00:00 93 % Commo n [facility] respiratory rate 2023-12-03 15:00:00 16 /min [facility] blood pressure systolic 2023-12-03 15:00:00 132 mm[Hg] Common [facility] blood pressure diastolic 2023-12-03 15:00:00 72 mm[Hg] [facility] height 2023-11-13 10:00:00 62 [in_i] Commo n [facility] weight 2023-11-13 10:00:00 193.4 [lb_av] Co mmon [facility] temperature 2023-11-13 10:00:00 97.3 [degF] Com mon [facility] bmi 2023-11-13 10:00:00 35.37 kg/m2 Comm on [facility] oximetry 2023-11-13 10:00:00 95 % Commo n [facility] respiratory rate 2023-11-13 10:00:00 16 /min [facility] blood pressure systolic 2023-11-13 10:00:00 136 mm[Hg] [facility] blood pressure diastolic 2023-11-13 10:00:00 72 mm[Hg] [facility] height 2023-09-06 15:40:00 62 [in_i] Commo n [facility] weight 2023-09-06 15:40:00 189.2 [lb_av] Co mmon [facility] temperature 2023-09-06 15:40:00 97.3 [degF] Com mon [facility] bmi 2023-09-06 15:40:00 34.6 kg/m2 Commo n [facility] oximetry 2023-09-06 15:40:00 95 % Commo n [facility] respiratory rate 2023-09-06 15:40:00 16 /min [facility] blood pressure systolic 2023-09-06 15:40:00 136 mm[Hg] Common [facility] blood pressure diastolic 2023-09-06 15:40:00 84 mm[Hg] [facility] height 2023-08-07 13:00:00 62 [in_i] Commo n [facility] weight 2023-08-07 13:00:00 189.6 [lb_av] Co mmon [facility] temperature 2023-08-07 13:00:00 97.3 [degF] Com mon [facility] bmi 2023-08-07 13:00:00 34.67 kg/m2 Comm on [facility] oximetry 2023-08-07 13:00:00 97 % Commo n [facility] blood pressure systolic 2023-08-07 13:00:00 139 mm[Hg] [facility] blood pressure diastolic 2023-08-07 13:00:00 84 mm[Hg] [facility] height 2023-07-03 13:20:00 62 [in_i] Commo n [facility] weight 2023-07-03 13:20:00 192.6 [lb_av] Co mmon [facility] temperature 2023-07-03 13:20:00 98.2 [degF] Com mon [facility] bmi 2023-07-03 13:20:00 35.22 kg/m2 Comm on [facility] oximetry 2023-07-03 13:20:00 95 % Commo n [facility] respiratory rate 2023-07-03 13:20:00 16 /min [facility] blood pressure systolic 2023-07-03 13:20:00 140 mm[Hg] [facility] blood pressure diastolic 2023-07-03 13:20:00 82 mm[Hg] Common [facility] Encounters Start Date/Time End Date/Time Encounter Type Admission Type Attending [facility] Care Facility Care Department Encounter ID Source 2024-07-10 09:16:00 Outpatient Jimmy Feliz STLMLC STLMLC [id number] [facility] 2023-12-24 10:59:00 Outpatient Jimmy Feliz STASHOKLC STLMLC [id number] [facility] 2023-11-30 13:34:01 Outpatient Jimmy Feliz STLMLC STLMLC [id number] [facility] 2023-08-03 07:40:00 Outpatient Jimmy Feliz STLMLC STLMLC [id number] [facility] 2023-07-03 13:04:01 Outpatient Jimmy Feliz STLMLC STLMLC [id number] [facility] 2025-01-09 00:00:00 2025-01-09 00:00:00 OFFICE VISIT ESTAB PT LEVEL 4 STLMLC STLMLC [id number] [facility] 2024-09-25 00:00:00 2024-09-25 00:00:00 (TEL) STLMLC STLMLC [id number] [facility] 2024-08-12 00:00:00 2024-08-12 00:00:00 (TEL) STLMLC STLMLC [id number] [facility] 2024-07-11 00:00:00 2024-07-11 00:00:00 OFFICE VISIT ESTAB PT LEVEL 4 STLMLC STLMLC [id number] [facility] 2024-05-08 00:00:00 2024-05-08 00:00:00 OFFICE VISIT ESTAB PT LEVEL 3 STLMLC STLMLC [id number] [facility] 2024-05-07 00:00:00 2024-05-07 00:00:00 (TEL) STLMLC STLMLC [id number] [facility] 2024-05-02 00:00:00 2024-05-02 00:00:00 (TEL) STLMLC STLMLC [id number] [facility] 2024-04-10 00:00:00 2024-04-10 00:00:00 OFFICE VISIT ESTAB PT LEVEL 4 STLMLC STLMLC [id number] [facility] 2024-04-10 00:00:00 2024-04-10 00:00:00 SUB ANNUAL [facility] VISIT STLMLC STLMLC [id number] [facility] 2024-03-24 00:00:00 2024-03-24 00:00:00 OFFICE VISIT ESTAB PT LEVEL 3 STLMLC STLMLC [id number] [facility] 2024-03-21 00:00:00 2024-03-21 00:00:00 (TEL) STLMLC STLMLC [id number] [facility] 2024-03-11 00:00:00 2024-03-11 00:00:00 OFFICE VISIT ESTAB PT LEVEL 3 STLMLC STLMLC [id number] [facility] 2024-03-07 00:00:00 2024-03-07 00:00:00 (TEL) STLMLC STLMLC [id number] [facility] 2023-12-24 00:00:00 2023-12-24 00:00:00 OFFICE VISIT ESTAB PT LEVEL 4 STLMLC STLMLC [id number] [facility] 2023-12-14 00:00:00 2023-12-14 00:00:00 OFFICE VISIT ESTAB PT LEVEL 4 STLMLC STLMLC [id number] [facility] 2023-12-03 00:00:00 2023-12-03 00:00:00 OFFICE VISIT ESTAB PT LEVEL 4 STLMLC STLMLC [id number] [facility] 2023-11-26 00:00:00 2023-11-26 00:00:00 (TEL) STLMLC STLMLC [id number] [facility] 2023-11-13 00:00:00 2023-11-13 00:00:00 OFFICE VISIT ESTAB PT LEVEL 4 STLMLC STLMLC [id number] [facility] 2023-09-06 00:00:00 2023-09-06 00:00:00 OFFICE VISIT ESTAB PT LEVEL 3 STLMLC STLMLC [id number] [facility] 2023-08-07 00:00:00 2023-08-07 00:00:00 OFFICE VISIT ESTAB PT LEVEL 4 STLMLC STLMLC [id number] [facility] 2023-07-03 00:00:00 2023-07-03 00:00:00 OFFICE VISIT NEW PT LEVEL 4 STLMLC STLMLC [id number] [facility] Results Test Description Test Time Test Comments Results Result Co mments Source Knee Left 3 View Knee Left 3 View
[2025-02-01] MEDS ORDERED: ONDANSETRON 4 MG/2 ML VIAL ONE (00:57)
[2025-02-01] MEDS ORDERED: NA CHLORIDE 0.9% 1,000 ML ONE (00:57)
[2025-02-01] MEDS ORDERED: MORPHINE 4 MG/ML SYR ONE (00:57)
[2025-02-01 01:08] LABS: Absolute Lymphocytes (CBC) 1.7 K/uL (0.7-4.9); Hematocrit 43.3 % (39.6-49.0); Hemoglobin 14.4 g/dL (13.6-17.9); MCH 28.4 pg (27.0-35.0); MCHC 33.3 g/dL (32.0-36.0); MCV 85.4 fL (80-100); MPV 9.5 fL (7.6-11.3); Nucleated RBC Absolute Count 0.0 (0-0); Nucleated Red Blood Cells % 0.1 % (0-0); RBC Red Blood Cell Count 5.07 M/uL (4.33-5.43); White Blood Count 9.80 thou/uL (4.3-10.9)
[2025-02-01 01:16] LABS: ALT/SGPT 26.0 U/L (16-61); AST/SGOT 21.0 U/L (15-37); Albumin 3.4 g/dL (3.4-5.0); Albumin/Globulin Ratio 1.2 (1.1-1.8); Alkaline Phosphatase 111.0 U/L (45-117); Anion Gap 10.4 mEq/L (5.0-15.0); BUN Blood Urea Nitrogen 18.0 mg/dL (7-18); Globulin 2.8 g/dL (2.3-3.5); Glucose Level 246.0 mg/dL (74-106); Lipase 32.0 U/L (13-75); Potassium 3.4 mEq/L (3.5-5.1)
[2025-02-01 03:49] LABS: Calcium Oxalate Crystals- Ur Few /HPF (None Seen); Sqamous Epithelial <5 /HPF (None Seen); Urine Culture Reflex Order NOT NEEDED; Urine Microscopic Reflex YN ORDER UMIC
--- NOTE | 2025-02-01 05:55 | ER ---
Nurse's Notes [facility] Name: Eloy Dunn Jr Age: 89 yrs Sex: Male : 1935 Arrival Date: 02/01/2025 Time: 00:20 Bed 14 Private MD: Diagnosis: Left Flank pain Presentation: 02/01 00:35 Chief complaint: Patient states: I feel like I have a kidney stone. Around 10pm I jb4 started having sudden left lower back pain. Coronavirus screen: At this time, the client does not indicate any symptoms associated with coronavirus-19. Ebola Screen: No symptoms or risks identified at this time. Initial Sepsis Screen: Does the patient meet any 2 criteria? No. Patient's initial sepsis screen is negative. Does the patient have a suspected source of infection? No. Patient's initial sepsis screen is negative. Risk Assessment: Do you want to hurt yourself or someone else? Patient reports no desire to harm self or others. Onset of symptoms was February 01, 2025. Transition of care: patient was not received from another setting of care. 00:35 Method Of Arrival: Ambulatory jb4 00:35 Acuity: GIA 3 jb4 Historical: - Allergies: 00:37 NKDA; jb4 - PMHx: 00:37 Hypertension; Hyperlipidemia; Ulcers; Kidney stone; jb4 - PSHx: 00:37 right hand; jb4 - Immunization history:: Adult Immunizations up to date. - Infectious Disease History:: Denies. - Social history:: Smoking status: Patient denies any tobacco usage or history of. Screenin:17 [facility] ED Fall Risk Assessment (Adult) History of falling in the last 3 months, ss12 including since admission No falls in past 3 months (0 pts) Confusion or Disorientation No (0 pts) Intoxicated or Sedated No (0 pts) Impaired Gait No (0 pts) Mobility Assist Device Used No (0 pt) Altered Elimination No (0 pt) Score/Fall Risk Level 0 - 2 = Low Risk Oriented to surroundings, Maintained a safe environment, Educated pt \T\ family on fall prevention, incl call for assistance when getting out of bed, Assessed \T\ reinforced patient's understanding of fall precautions. Abuse screen: Denies threats or abuse. Denies injuries from another. Nutritional screening: No deficits noted. Tuberculosis screening: No symptoms or risk factors identified. Assessment: 00:45 General: Appears in no apparent distress. comfortable, Behavior is calm, cooperative, jb4 appropriate for age. Pain: Complains of pain in left low back Pain does not radiate. Pain currently is 8 out of 10 on a pain scale. Neuro: Level of Consciousness is awake, alert, obeys commands, Oriented to person, place, time, situation. Cardiovascular: Patient's skin is warm and dry. Respiratory: Airway is patent Respiratory effort is even, unlabored, Respiratory pattern is regular, symmetrical. GI: Abdomen is flat, non-distended, Reports nausea. Derm: Skin is intact, Skin is pink, warm \T\ dry. Musculoskeletal: Circulation, motion, and sensation intact. Range of motion: intact in all extremities. 01:44 Reassessment: Patient appears in no apparent distress at this time. Patient and/or jb4 family updated on plan of care and expected duration. Pain level reassessed. Patient is alert, oriented x 3, equal unlabored respirations, skin warm/dry/pink. 03:00 Reassessment: Patient appears in no apparent distress at this time. Patient and/or ss12 family updated on plan of care and expected duration. Pain level reassessed. Patient is alert, oriented x 3, equal unlabored respirations, skin warm/dry/pink. 04:15 Reassessment: Patient appears in no apparent distress at this time. Patient and/or ss12 family updated on plan of care and expected duration. Pain level reassessed. Patient is alert, oriented x 3, equal unlabored respirations, skin warm/dry/pink. 05:03 Reassessment: Patient appears in no apparent distress at this time. No changes from 12 previously documented assessment. Patient is alert, oriented x 3, equal unlabored respirations, skin warm/dry/pink. 06:00 Reassessment: Patient appears in no apparent distress at this time. Patient and/or ss12 family updated on plan of care and expected duration. Pain level reassessed. Patient is alert, oriented x 3, equal unlabored respirations, skin warm/dry/pink. Vital Signs: 00:35 BP 141 / 80; Pulse 101; Resp 16; Temp 98(O); Pulse Ox 95% on R/A; Weight 86.18 kg (R); jb4 Height 5 ft. 9 in. ; Pain 5/10; 02:10 BP 135 / 85; Pulse 82; Resp 16; Pulse Ox 93% on R/A; jb4 03:00 BP 148 / 77; Pulse 86; Resp 16 S; Pulse Ox 94% on R/A; ss12 04:16 BP 136 / 87; Pulse 70; Resp 16 S; Pulse Ox 94% on R/A; ss12 05:03 BP 129 / 81; Pulse 66; Resp 16 S; Pulse Ox 94% on R/A; ss12 06:00 BP 147 / 86; Pulse 61; Resp 16 S; Pulse Ox 96% on R/A; ss12 00:35 Body Mass Index 28.06 (86.18 kg, 175.26 cm) jb4 00:35 Pain Scale: Adult jb4 ED Course: 00:21 Patient arrived in ED. im 00:26 Pamela Langley FNP-C is PHCP. kb 00:26 Kenyon Ray DO is Attending Physician. kb 00:37 Triage completed. jb4 00:37 Arm band placed on right wrist. jb4 00:51 CBC with Diff Sent. jb4 00:51 CMP Sent. jb4 00:51 Lipase Sent. jb4 01:25 CT Stone Protocol In Process Unspecified. EDMS 03:24 Tonya Castaneda, RN is Primary Nurse. ss12 04:17 Patient has correct armband on for positive identification. Provided Education on: plan ss12 of care. 04:17 No provider procedures requiring assistance completed. ss12 06:11 IV discontinued, intact, bleeding controlled, No redness/swelling at site. Pressure ss12 dressing applied. Administered Medications: 01:02 Drug: Ondansetron IVP 4 mg IVP once; over 2 minutes Route: IVP; Site: right antecubital;jb4 03:00 Follow up: Response: No adverse reaction; Nausea is decreased ss12 01:02 Drug: morphine IVP or IV 4 mg IVP once over 4 mins Route: IVP; Infused Over: 4 mins; jb4 Site: right antecubital; 03:00 Follow up: Response: No adverse reaction; Pain is decreased ss12 01:02 Drug: NS 0.9% IV 1000 ml IV at 1 bolus Per protocol; to be given as a bolus over 60 jb4 minutes Route: IV; Rate: 1 bolus; Site: right antecubital; 06:09 Follow up: IV Status: Completed infusion; IV Intake: 1000ml 12 Medication: 04:17 VIS not applicable for this client. ss12 Intake: 06:09 IV: 1000ml; Total: 1000ml. 12 Outcome: 05:54 Discharge ordered by . ms3 06:10 Discharged to home ambulatory, 12 06:10 Condition: stable 06:10 Discharge instructions given to patient, family, Instructed on discharge instructions, follow up and referral plans. Demonstrated understanding of instructions, follow-up care, 06:11 Patient left the ED. 12 Signatures: Dispatcher [employer] EDMS Pamela Langley, ECONOMICS CONSULTANT-C ECONOMICS CONSULTANT-CkDamion Reece, RN RN jb4 Kenyon Ray DO DO ms3 Alyssa Al Shamaila, RN RN ss12
--- NOTE | 2025-02-01 05:55 | EDPHYS ---
Physician Documentation [facility] Name: Eloy Dunn Jr Age: 89 yrs Sex: Male : 1935 Arrival Date: 02/01/2025 Time: 00:20 Bed 14 Private MD: ED Physician Kenyon Ray HPI: 02/01 00:38 This 89 yrs old Male presents to ER via Ambulatory with complaints of Vomiting, Low kb Back Pain. 00:38 Patient is a 89-year-old male who presents for nausea, vomiting and left flank pain kb that started at 10 PM. States he had no symptoms prior to that. Reports history of kidney stones and this feels the same. Denies fever, urinary symptoms, diarrhea. Historical: - Allergies: 00:37 NKDA; jb4 - PMHx: 00:37 Hypertension; Hyperlipidemia; Ulcers; Kidney stone; jb4 - PSHx: 00:37 right hand; jb4 - Immunization history:: Adult Immunizations up to date. - Infectious Disease History:: Denies. - Social history:: Smoking status: Patient denies any tobacco usage or history of. ROS: 00:37 Constitutional: As per HPI kb Exam: 00:37 Constitutional: This is a well developed, well nourished patient who is awake, alert, kb and in no acute distress. Head/Face: Normocephalic, atraumatic. ENT: Moist Mucous membranes Cardiovascular: Regular rate Respiratory: Respirations even and unlabored. No increased work of breathing. Talking in full sentences Skin: Warm, dry with normal turgor. Normal color. MS/ Extremity: Pulses equal, no cyanosis. Neurovascular intact. Full, normal range of motion. Neuro: Awake and alert, GCS 15, oriented to person, place, time, and situation. 00:37 Abdomen/GI: Inspection: abdomen appears normal, Bowel sounds: normal, Palpation: soft, in all quadrants, mild abdominal tenderness, in the left lower quadrant, 00:37 Back: CVA tenderness, that is mild, is noted on the left, Vital Signs: 00:35 BP 141 / 80; Pulse 101; Resp 16; Temp 98(O); Pulse Ox 95% on R/A; Weight 86.18 kg (R); jb4 Height 5 ft. 9 in. ; Pain 5/10; 02:10 BP 135 / 85; Pulse 82; Resp 16; Pulse Ox 93% on R/A; jb4 03:00 BP 148 / 77; Pulse 86; Resp 16 S; Pulse Ox 94% on R/A; ss12 04:16 BP 136 / 87; Pulse 70; Resp 16 S; Pulse Ox 94% on R/A; ss12 05:03 BP 129 / 81; Pulse 66; Resp 16 S; Pulse Ox 94% on R/A; ss12 06:00 BP 147 / 86; Pulse 61; Resp 16 S; Pulse Ox 96% on R/A; ss12 00:35 Body Mass Index 28.06 (86.18 kg, 175.26 cm) jb4 00:35 Pain Scale: Adult jb4 MDM: 00:26 Medical Screening Exam initiated kb 00:37 Data reviewed: vital signs, nurses notes. kb 00:38 Historians other than the Patient: Spouse/Significant Other: . kb 01:47 Transition of care: After a detail discussion of the patient's case, care is kb transferred to Kenyon Ray DO. 02:09 Transition of care: Care assumed from Pamela EVANS. ms3 05:55 Differential diagnosis: Nonspecific abd pain, diverticulitis, Kidney stone. I ms3 considered the following discharge prescriptions or medication management in the emergency department Medications were administered in the Emergency Department. See MAR. Counseling: I had a detailed discussion with the patient and/or guardian regarding the historical points, exam findings, and any diagnostic results supporting the discharge/admit diagnosis, lab results, radiology results, the need for outpatient follow up, to return to the emergency department if symptoms worsen or persist or if there are any questions or concerns that arise at home. Special discussion: Based on the patient's Hx, exam, and Dx evaluation, there is no indication for emergent surgery or inpatient Tx. It is understood by the patient/guardian that if the Sx's persist or worsen they need to return immediately for re-evaluation. ED course: Discussed CT without contrast of abdomen pelvis showing left and right inguinal hernias, diverticulosis, bladder stone. Patient white blood count normal. Patient's abdomen is nontender to palpation. Patient is alert and orient x 4, no apparent distress, nontoxic-appearing, speaking full sentences. Patient to follow-up with his primary care physician in 2 to 3 days. All questions were answered. Return precautions discussed include worsening symptoms, or any other concerns. 02/01 00:36 Order name: CBC with Diff; Complete Time: :10 kb 02/01 00:36 Order name: CMP; Complete Time: : kb 02/02 00:36 Order name: Lipase; Complete Time: : kb 02/01 00:36 Order name: UA Rfx Major Cult if indicated; Complete Time: 03:53 kb 02/01 00:36 Order name: CT Stone Protocol kb 02/02 00:36 Order name: IV Saline Lock; Complete Time: 00:51 kb 02/01 00:36 Order name: Labs collected and sent; Complete Time: 00:51 kb Administered Medications: 01:02 Drug: Ondansetron IVP 4 mg IVP once; over 2 minutes Route: IVP; Site: right antecubital;jb4 03:00 Follow up: Response: No adverse reaction; Nausea is decreased ss12 01:02 Drug: morphine IVP or IV 4 mg IVP once over 4 mins Route: IVP; Infused Over: 4 mins; jb4 Site: right antecubital; 03:00 Follow up: Response: No adverse reaction; Pain is decreased ss12 01:02 Drug: NS 0.9% IV 1000 ml IV at 1 bolus Per protocol; to be given as a bolus over 60 jb4 minutes Route: IV; Rate: 1 bolus; Site: right antecubital; 06:09 Follow up: IV Status: Completed infusion; IV Intake: 1000ml ss12 Disposition: 02:11 Co-signature as Attending PhysicianKenyon DO. ms3 Disposition Summary: 02/01/25 05:54 Discharge Ordered Notes: Location: Home ms3 Condition: Stable ms3 Diagnosis - Left Flank pain ms3 Followup: ms3 - With: Private Physician - When: 2 - 3 days - Reason: Recheck today's complaints Discharge Instructions: - Discharge Summary Sheet ms3 - Flank Pain, Adult, [facility] ms3 Forms: - Medication Reconciliation Form ms3 - Antibiotic Education ms3 - Prescription Opioid Use ms3 - Patient Portal Instructions ms3 - Leadership Thank You Letter ms3 Signatures: Dispatcher [employer] Pamela Chatterjee FNP-C FNP-Damion Darnell RN RN Kenyon Ibanez DO DO ms3 Tonya Castaneda RN ss12 Corrections: (The following items were deleted from the chart) 00:36 00:36 CBC+H.LAB.BRZ ordered. EDMS EDMS 00:36 00:36 COMPREHENSIVE METABOLIC PANEL+C.LAB.BRZ ordered. EDMS EDMS 00:36 00:36 LIPASE+C.LAB.BRZ ordered. EDMS EDMS 00:36 00:36 UA Rfx Major Cult if indicated+U.LAB.BRZ ordered. EDMS EDMS 00:36 00:36 Stone Protocol+CT.RAD.BRZ ordered. EDMS EDMS
--- NOTE | 2025-02-01 06:05 | RAD REPORT ---
EXAMINATION: CT ABDOMEN PELVIS WITHOUT IV CONTRAST INDICATION: 89 years old Male 1935 Flank pain COMPARISON(S): CT Abdomen Pelvis 12/30/2024. TECHNIQUE: CT abdomen and pelvis. One or more of the following dose-optimizing techniques was utilize d for this exam: automated exposure control, adjustment of the mA and/or kV according to patient size, and/or use of iterative reconstruction technique. CONTRAST: As stated in examination. FINDINGS: SUPPORT DEVICES: None. LOWER CHEST: Normal. ABDOMEN/PELVIS: Liver: No acute finding. Gallbladder: Normal gallbladder. Biliary: No biliary ductal dilation. Pancreas: No pancreatitis. Spleen: Tiny splenic granulomata. Adrenal glands: No acute finding. Kidneys and ureters: No obstruction. 3 mm stone lower pole right kidney nonobstructing. No hydrourete r. Bladder: Small volume. Calcification is seen in the left lateral aspect of the urinary bladder 10 mm in size. Reproductive organs: Massive prostatomegaly with the AP dimension being 7.5 cm in transverse dimensio n 7.5 cm. Stomach/bowel: No obstruction or focal inflammation. Sigmoid diverticulosis without features of d iverticulitis Appendix: No appendicitis. Lymph nodes: No lymphadenopathy. Peritoneum: No intraperitoneal free air or significant fluid. Vessels: Normal for technique. MUSCULOSKELETAL: Abdominal wall: A small segment of the sigmoid colon is involved with left large inguinal fat-contain ing hernia. Right-sided fat-containing inguinal hernia also present with a portion of small bowel in the superior extent. No evidence of obstruction or incarceration. Bones: No acute osseous abnormality. IMPRESSION: Sigmoid diverticulosis without features of diverticulitis. A small segment of the sigmoid colon is involved with left large inguinal fat-containing hernia. Righ t-sided fat-containing inguinal hernia also present with a portion of small bowel in the superior extent. No evidence of hernia incarceration or intestinal obstruction. 10 mm bladder stone. No evidence of urinary tract obstruction. Right renal lithiasis. Electronically signed by: Donald Chávez MD 02/01/2025 05:37 AM CDT Due to temporary technical issues with the PACS/[employer] reporting system, reports are being lazaro d by the in-house radiologist without review as a courtesy to ensure prompt reporting the interpreting radiologist is fully responsible for the content of the report. Transcribed Date/Time: 02/01/2025 6:04 AM
[2025-02-01 06:17] VITALS: TEMP 98
[2025-02-01 06:25] VITALS: BP 147/86; O2SAT 96
== END 2025-02-01 06:11 | disposition home or self-care (01) ==
LOC: ER 00:20
DX: R10.32 Left lower quadrant pain (principal); R11.2 Nausea with vomiting, unspecified
CPT/HCPCS: 96361; 85025; 81001; 36415; 83690; 80053; 76377; 74176; 96375; 96374; 99284; J2405; J7030